=== PATIENT | female | born 1995 | race Caucasian/White ===

== ENCOUNTER → 2016-10-16 | Outpatient (CLI) | payer SELFPAY ==
[~2016-10-16] MED LIST: ACET50TA PO; IBUP60TA PO; IBUP80TA PO; IRON65TA PO; PRENTAB9 PO; VITAPRTA PO
--- NOTE | 2016-10-16 13:17 | REP ---
Clinical: Multinodular goiter. Technique: Real time galicia scale and color evaluation using linear high frequency transducer. Findings: The thyroid gland is diffusely heterogeneous with innumerable small nodular changes. Right lobe measures 5.1 x 2.2 x 2.1 cm. Left lobe measures 5.1 x 2.2 x 2.0 cm. Isthmus measures 3 mm in width. Impression: Multinodular goiter. Signed by Jim Hinds MD 10/16/2016 01:08 P
== END ==
LOC: M RAD 12:44
PROVIDERS: ATTEND Family Medicine
DX: E04.1 Nontoxic single thyroid nodule (principal)

== ENCOUNTER → 2016-10-26 | Outpatient (REF) | payer MEDICAID ==
[2016-10-26 15:53] LABS: FREE T4 0.8 NG/DL (0.76-1.46)
== END ==
LOC: M SFHCPLAZ 13:35
PROVIDERS: ATTEND Family Medicine
DX: E04.1 Nontoxic single thyroid nodule (principal)

== ENCOUNTER → 2016-11-12 | Outpatient (REF) | payer OTHER ==
[2016-11-13 10:39] LABS: THYROID PEROXIDASE ANTIBODY > 1300.0 U/ML (<60.0)
== END ==
LOC: M LABDRAW1 10:52
PROVIDERS: ATTEND Family Medicine
DX: E03.9 Hypothyroidism, unspecified (principal)

== ENCOUNTER 2016-12-15 17:43 | Emergency (ER) | payer OTHER ==
[~2016-12-15] VITALS: Ht 160 cm; Wt 85.3 kg
[2016-12-15] MEDS ORDERED: LEVO25TA5 PO (18:12)
[2016-12-15] MEDS ORDERED: ALEV220C2 PO (18:12)
[2016-12-15] MEDS ORDERED: PERCOCET 5MG/325MG TAB PO ONE (19:30)
[2016-12-15] MEDS ORDERED: ONDANSETRON 4 MG ORAL DISINTEGRATING TAB (S0181) PO ONE (19:30)
[2016-12-15 19:53] LABS: BASO % 0.6 % (0.0-1.0); EOS # 0.3 K/mm3 (0.0-0.50); EOS % 5.2 % (0.0-3.0); LARGE UNSTAINED CELL # 0.1 K/mm3 (0.0-0.4); LARGE UNSTAINED CELL % 2.4 % (0.0-4.0); LYMPH # 2.3 K/mm3 (1.5-6.5); LYMPH % 36.7 % (24.0-44.0); MEAN CORPUSCULAR HEMOGLOBIN 28.1 pg (27.0-33.0); MEAN CORPUSCULAR HGB CONC 33.5 g/dl (32.0-36.5); MONO # 0.4 K/mm3 (0.0-0.8); MONO % 5.9 % (0.0-5.0); NEUTROPHILS % 49.3 % (36.0-66.0); PLATELET COUNT, AUTOMATED 216 k/mm3 (150-450); RED CELL DISTRIBUTION WIDTH 12.8 % (11.5-14.5)
[2016-12-15 20:03] LABS: ALKALINE PHOSPHATASE 83 U/L (45-117); ALT/SGPT 18 U/L (12-78); AMYLASE 48 U/L (25-115); ANION GAP 8 MEQ/L (8-16); AST/SGOT 15 U/L (15-37); BILIRUBIN,DIRECT < 0.1 MG/DL (0.0-0.2); BILIRUBIN,TOTAL 0.3 MG/DL (0.2-1.0); BLOOD UREA NITROGEN 13 MG/DL (7-18); CALCIUM LEVEL 8.5 MG/DL (8.5-10.1); CARBON DIOXIDE LEVEL 27 MEQ/L (21-32); CHLORIDE LEVEL 107 MEQ/L (98-107); CREATININE FOR GFR 0.76 MG/DL (0.55-1.02); GLOMERULAR FILTRATION RATE > 60.0 (>60); GLUCOSE, FASTING 93 MG/DL (70-105); POTASSIUM SERUM 3.9 MEQ/L (3.5-5.1); SODIUM LEVEL 142 MEQ/L (136-145)
--- NOTE | 2016-12-15 21:10 | REPUSA ---
CLINICAL HISTORY: Pain. TECHNIQUE: Realtime sonographic images were obtained in multiple projections. COMMENTS: The liver is of uniform echo texture without evidence of mass or defect. There is no intra or extrahe patic biliary ductal dilatation. The common bile duct measures up to 3 mm. The gallbladder is physiol ogically distended without evidence of calculi. The gallbladder wall is not thickened and there is no pericholecystic fluid. There is no abdominal ascites. The visualized portions of the pancreas are unremarkable. The right kidney measures 11.1 cm and is fr ee of masses or hydronephrosis. The visualized portions of abdominal aorta present no abnormalities. IMPRESSION: Normal study. Thank you for your kind referral of this patient.
[2016-12-15] MEDS ORDERED: PRIL20CA9 PO (21:27)
[2016-12-15] MEDS ORDERED: ZOFR4TAB3 PO (21:27)
[2016-12-15 21:35] VITALS: BP 119/72
== END 2016-12-15 21:53 | disposition home or self-care (01) ==
LOC: M ED 18:48
DX: K29.00 Acute gastritis without bleeding (principal); K21.9 Gastro-esophageal reflux disease without esophagitis; Z79.899 Other long term (current) drug therapy

== ENCOUNTER 2017-01-21 23:26 | Emergency (ER) | payer OTHER ==
[~2017-01-21] VITALS: Ht 160 cm; Wt 77.1 kg
[~2017-01-21 23:26] MED LIST changes: +ALEV220C2 PO; +LEVO25TA5 PO; +PRIL20CA9 PO; +ZOFR4TAB3 PO
[2017-01-21 23:27] VITALS: BP 129/71
[2017-01-22] MEDS ORDERED: IBUPROFEN 800 MG TAB PO ONE (00:15)
== END 2017-01-22 00:46 | disposition home or self-care (01) ==
LOC: M ED 01-22 00:28
DX: S93.431A Sprain of tibiofibular ligament of right ankle, initial encounter (principal); X58.XXXA Exposure to other specified factors, initial encounter; Y92.019 Unspecified place in single-family (private) house as the place of occurrence of the external cause; Y93.89 Activity, other specified; Y99.8 Other external cause status; F41.9 Anxiety disorder, unspecified

== ENCOUNTER → 2017-02-01 | Outpatient (CLI) | payer OTHER | LOC: M SMT 10:25 | PROVIDERS: ATTEND Family Medicine | DX: S93.401A Sprain of unspecified ligament of right ankle, initial encounter (principal); Z53.9 Procedure and treatment not carried out, unspecified reason ==

== ENCOUNTER 2017-07-20 15:46 | Emergency (ER) | payer OTHER ==
[~2017-07-20] VITALS: Ht 160 cm; Wt 95.5 kg
[2017-07-20 15:55] VITALS: BP 148/81
[2017-07-20] MEDS ORDERED: FERR325T3 PO (15:59)
[2017-07-20] MEDS ORDERED: AFLU1INJ (15:59)
[2017-07-20 17:01] LABS: CONTROL LINE UCG INT CTR LINE PRESENT
--- NOTE | 2017-07-20 18:05 | REP ---
PELVIC ULTRASOUND: Real-time sonographic evaluation of the pelvis performed utilizing transabdominal technique. The bladder is collapsed. The uterus measures 8.0 x 4.0 x 5.8 cm. Endometrial stripe measures 2 mm. There is no endometrial fluid collection. Ovaries are normal in size and echotexture, the right ovary measuring 3.4 x 1.8 x 1.7 cm and left ovary 2.1 x 2.3 x 2.1 cm. There is no adnexal mass or free fluid. There is blood flow seen in each ovary with duplex Doppler evaluation with no torsion, RI right ovary 0.58 and left ovary 0.60. IMPRESSION: Negative pelvic ultrasound. Signed by Wang Hernandez MD 07/20/2017 08:03 P
--- NOTE | 2017-07-20 18:51 | REP ---
CT ABDOMEN AND PELVIS WITHOUT CONTRAST: CT abdomen and pelvis was performed without oral or IV contrast. Sagittal and coronal reconstruction images are performed. Visualized lung bases are clear. Liver, spleen, adrenals, pancreas, and kidneys are grossly unremarkable. No renal or ureteral calculus is seen and there is no evidence of hydroureteronephrosis. There is no evidence of abdominal aortic aneurysm. There is no adenopathy seen. No free air or free fluid is seen. I see no bowel wall thickening. The appendix is normal. No pelvic mass is seen. Urinary bladder is gross unremarkable. IMPRESSION: Negative noncontrast CT abdomen and pelvis. No renal or ureteral calculus and no hydroureteronephrosis. No evidence of appendicitis. No evidence of free air or free fluid. Signed by Wang Hernandez MD 07/20/2017 08:04 P
[2017-07-20] MEDS ORDERED: OXYCODONE/APAP 5MG/325MG(BULK FOR ED) 1 TABLET PO ONE (19:00)
[2017-07-20] MEDS ORDERED: LEVO25TA5 PO (19:16)
== END 2017-07-20 19:28 | disposition home or self-care (01) ==
LOC: M ED 15:46
DX: R10.2 Pelvic and perineal pain (principal); F41.9 Anxiety disorder, unspecified; F33.9 Major depressive disorder, recurrent, unspecified; Z79.899 Other long term (current) drug therapy

== ENCOUNTER 2017-10-13 08:04 | Emergency (ER) | payer OTHER ==
[2017-10-13] MEDS: ACETAMINOPHEN 325 MG TAB PO (08:30)
[2017-10-13 08:57] LABS: BASO % 0.7 % (0.0-1.0); EOS # 0.2 10^3/uL (0.0-0.50); EOS % 3.5 % (0.0-3.0); HEMATOCRIT 37.9 % (36.0-47.0); IMMATURE GRANULOCYTE % 0.5 % (0-0); LYMPH # 2.3 10^3/uL (1.5-6.5); LYMPH % 37.4 % (24.0-44.0); MEAN CORPUSCULAR HEMOGLOBIN 26.6 pg (27.0-33.0); MEAN CORPUSCULAR HGB CONC 31.7 g/dl (32.0-36.5); MONO # 0.4 10^3/uL (0.0-0.8); MONO % 6.8 % (0.0-5.0); NEUTROPHILS # 3.1 10^3/uL (1.8-7.7); NEUTROPHILS % 51.1 % (36.0-66.0); PLATELET COUNT, AUTOMATED 224 10^3/uL (150-450); RED BLOOD COUNT 4.51 10^6/uL (4.00-5.40); RED CELL DISTRIBUTION WIDTH 13.7 % (11.5-14.5)
[2017-10-13 09:30] LABS: ANION GAP 8 MEQ/L (8-16); BLOOD UREA NITROGEN 8 MG/DL (7-18); CALCIUM LEVEL 8.4 MG/DL (8.5-10.1); CARBON DIOXIDE LEVEL 26 MEQ/L (21-32); CHLORIDE LEVEL 109 MEQ/L (98-107); CREATININE FOR GFR 0.69 MG/DL (0.55-1.02); ERYTHROCYTE SEDIMENTATION RATE 32 mm/hr (0-20); GLOMERULAR FILTRATION RATE > 60.0 (>60); GLUCOSE, FASTING 90 MG/DL (70-105); POTASSIUM SERUM 3.9 MEQ/L (3.5-5.1); SODIUM LEVEL 143 MEQ/L (136-145)
== END 2017-10-13 10:20 | disposition home or self-care (01) ==
LOC: M ED 08:04
DX: J02.0 Streptococcal pharyngitis (principal); R51 Headache; E03.9 Hypothyroidism, unspecified; Z79.899 Other long term (current) drug therapy
CPT/HCPCS: 84443

== ENCOUNTER 2017-11-13 05:20 | Emergency (ER) | payer OTHER ==
[2017-11-13] MEDS: AUGMENTIN 875 MG TAB PO (05:51)
== END 2017-11-13 06:05 | disposition home or self-care (01) ==
LOC: M ED 05:20
DX: H66.93 Otitis media, unspecified, bilateral (principal); R05 Cough; E03.9 Hypothyroidism, unspecified; F17.200 Nicotine dependence, unspecified, uncomplicated; Z79.899 Other long term (current) drug therapy
CPT/HCPCS: 71046

== ENCOUNTER 2017-12-15 16:06 | Emergency (ER) | payer OTHER | END 2017-12-15 17:35 | disposition left against medical advice (07) | LOC: M ED 16:06 | DX: Z53.21 Procedure and treatment not carried out due to patient leaving prior to being seen by health care provider (principal) ==

== ENCOUNTER → 2017-12-29 | Outpatient (REF) | payer OTHER ==
[2017-12-29 12:47] LABS: BASO % 0.4 % (0.0-1.0); EOS # 0.2 10^3/uL (0.0-0.50); EOS % 3.5 % (0.0-3.0); HEMATOCRIT 37.5 % (36.0-47.0); HEMOGLOBIN 11.8 g/dl (12.0-16.0); IMMATURE GRANULOCYTE % 0.4 % (0-3.0); LYMPH # 2.2 10^3/uL (1.5-6.5); LYMPH % 31.6 % (24.0-44.0); MEAN CORPUSCULAR HEMOGLOBIN 26.5 pg (27.0-33.0); MEAN CORPUSCULAR HGB CONC 31.5 g/dl (32.0-36.5); MEAN CORPUSCULAR VOLUME 84.1 fl (80.0-96.0); MONO # 0.5 10^3/uL (0.0-0.8); MONO % 7.4 % (0.0-5.0); NEUTROPHILS # 3.9 10^3/uL (1.8-7.7); NEUTROPHILS % 56.7 % (36.0-66.0); PLATELET COUNT, AUTOMATED 212 10^3/uL (150-450); RED BLOOD COUNT 4.46 10^6/uL (4.00-5.40); RED CELL DISTRIBUTION WIDTH 13.8 % (11.5-14.5); WHITE BLOOD COUNT 6.9 10^3/uL (4.0-10.0)
[2017-12-29 13:02] LABS: C REACTIVE PROTEIN QUANTITATIV 1.19 MG/DL (0.00-0.30)
[2017-12-29 13:05] LABS: ERYTHROCYTE SEDIMENTATION RATE 41 mm/hr (0-20)
== END ==
LOC: M LABDRAW1 10:09
DX: R22.41 Localized swelling, mass and lump, right lower limb (principal)
CPT/HCPCS: 36415

== ENCOUNTER → 2018-01-03 | Outpatient (CLI) | payer OTHER ==
[~2018-01-03] MED LIST changes: -ACET50TA PO; -ALEV220C2 PO; -IBUP60TA PO; -IBUP80TA PO; -IRON65TA PO; -LEVO25TA5 PO; -PRENTAB9 PO; -PRIL20CA9 PO; +PROHANCE 279.3MG/ML 15ML VIAL (A9576) As Ordered; +PROHANCE 279.3MG/ML 5ML VIAL (A9576) As Ordered; -VITAPRTA PO; -ZOFR4TAB3 PO
== END ==
LOC: M RAD 17:40
DX: R22.41 Localized swelling, mass and lump, right lower limb (principal); D17.39 Benign lipomatous neoplasm of skin and subcutaneous tissue of other sites
CPT/HCPCS: A9576

== ENCOUNTER → 2018-01-20 | Outpatient (REF) | payer OTHER ==
[2018-01-20 15:46] LABS: BASO % 0.4 % (0.0-1.0); EOS # 0.3 10^3/uL (0.0-0.50); HEMATOCRIT 37.7 % (36.0-47.0); HEMOGLOBIN 12.3 g/dl (12.0-15.5); IMMATURE GRANULOCYTE % 0.2 % (0-3.0); LYMPH # 2.8 10^3/uL (1.5-6.5); LYMPH % 33.4 % (24.0-44.0); MEAN CORPUSCULAR HEMOGLOBIN 27.2 pg (27.0-33.0); MEAN CORPUSCULAR HGB CONC 32.6 g/dl (32.0-36.5); MEAN CORPUSCULAR VOLUME 83.2 fl (80.0-96.0); MONO # 0.5 10^3/uL (0.0-0.8); MONO % 6.4 % (0.0-5.0); NEUTROPHILS # 4.8 10^3/uL (1.8-7.7); NEUTROPHILS % 56.6 % (36.0-66.0); PLATELET COUNT, AUTOMATED 252 10^3/uL (150-450); RED BLOOD COUNT 4.53 10^6/uL (4.00-5.40); WHITE BLOOD COUNT 8.5 10^3/uL (4.0-10.0)
[2018-01-20 15:54] LABS: APPEARANCE, URINE HAZY (CLEAR); BACTERIA, URINE AUTO NEGATIVE (NEGATIVE); BILIRUBIN, URINE AUTO NEGATIVE (NEGATIVE); BLOOD, URINE BLOOD 2+ (NEGATIVE); COLOR, URINE YELLOW (YELLOW); GLUCOSE, URINE (UA) AUTO NEGATIVE (NEGATIVE); KETONE, URINE AUTO NEGATIVE (NEGATIVE); LEUKOCYTE ESTERASE, URINE AUTO TRACE (NEGATIVE); MUCUS, URINE SMALL (NEGATIVE); NITRITE, URINE AUTO NEGATIVE (NEGATIVE); PROTEIN, URINE AUTO NEGATIVE (NEGATIVE); RBC, URINE AUTO 9 /HPF (0-3); SPECIFIC GRAVITY URINE AUTO 1.019 (1.002-1.035); SQUAMOUS EPITHELIAL CELL UR AU 3 /HPF (0-6); UROBILINOGEN, URINE AUTO 0.2 mg/dL (0.0-2.0); WBC, URINE AUTO 2 /HPF (0-3)
[2018-01-20 16:08] LABS: ERYTHROCYTE SEDIMENTATION RATE 34 mm/hr (0-20)
[2018-01-20 16:17] LABS: ALBUMIN 3.7 GM/DL (3.2-5.2); ALBUMIN/GLOBULIN RATIO 0.93 (1.00-1.93); ALKALINE PHOSPHATASE 107 U/L (45-117); ALT/SGPT 20 U/L (12-78); ANION GAP 7 MEQ/L (8-16); AST/SGOT 15 U/L (7-37); BILIRUBIN,TOTAL 0.3 MG/DL (0.2-1.0); BLOOD UREA NITROGEN 12 MG/DL (7-18); CARBON DIOXIDE LEVEL 27 MEQ/L (21-32); CHLORIDE LEVEL 107 MEQ/L (98-107); CREATININE FOR GFR 0.65 MG/DL (0.55-1.30); FREE T4 0.78 NG/DL (0.76-1.46); GLOMERULAR FILTRATION RATE > 60.0 (>60); GLUCOSE, FASTING 91 MG/DL (70-100); POTASSIUM SERUM 3.7 MEQ/L (3.5-5.1); SODIUM LEVEL 141 MEQ/L (136-145); TOTAL PROTEIN 7.7 GM/DL (6.4-8.2)
== END ==
LOC: M LABDRAW1 14:56
DX: R19.5 Other fecal abnormalities (principal); R71.8 Other abnormality of red blood cells

== ENCOUNTER → 2018-02-15 | Outpatient (CLI) | payer OTHER | LOC: M RAD 17:37 | DX: M25.571 Pain in right ankle and joints of right foot (principal); M25.572 Pain in left ankle and joints of left foot | CPT/HCPCS: 93971 ==

== ENCOUNTER → 2018-02-18 | Outpatient (REF) | payer OTHER ==
[2018-02-18 15:42] LABS: BASO % 0.4 % (0.0-1.0); EOS # 0.2 10^3/uL (0.0-0.50); EOS % 2.6 % (0.0-3.0); HEMATOCRIT 35.6 % (36.0-47.0); HEMOGLOBIN 11.6 g/dl (12.0-15.5); IMMATURE GRANULOCYTE % 0.3 % (0-3.0); LYMPH # 2.1 10^3/uL (1.5-6.5); LYMPH % 27.3 % (24.0-44.0); MEAN CORPUSCULAR HEMOGLOBIN 27.4 pg (27.0-33.0); MEAN CORPUSCULAR HGB CONC 32.6 g/dl (32.0-36.5); MONO # 0.6 10^3/uL (0.0-0.8); MONO % 7.3 % (0.0-5.0); NEUTROPHILS # 4.8 10^3/uL (1.8-7.7); NEUTROPHILS % 62.1 % (36.0-66.0); PLATELET COUNT, AUTOMATED 245 10^3/uL (150-450); RED BLOOD COUNT 4.24 10^6/uL (4.00-5.40); RED CELL DISTRIBUTION WIDTH 14.1 % (11.5-14.5); WHITE BLOOD COUNT 7.7 10^3/uL (4.0-10.0)
[2018-02-18 15:52] LABS: C REACTIVE PROTEIN QUANTITATIV 1.46 MG/DL (0.00-0.30); RHEUMATOID FACTOR QUANT < 10.0 IU/ML (<15.0)
[2018-02-18 17:27] LABS: ERYTHROCYTE SEDIMENTATION RATE 33 mm/hr (0-20)
[2018-02-22 00:07] LABS: ANTINUCLEAR ANTIBODIES DIRECT Negative (Negative); Lyme Disease IgG/IgM Antibodie <0.91 ISR (0.00-0.90); Lyme Disease IgM Ab Quantitati <0.80 index (0.00-0.79)
== END ==
LOC: M LAB REF 15:31
DX: M25.571 Pain in right ankle and joints of right foot (principal)
CPT/HCPCS: 84550

== ENCOUNTER 2018-09-22 11:14 | Emergency (ER) | payer OTHER | END 2018-09-22 13:00 | disposition home or self-care (01) | LOC: M ED 11:14 | DX: M25.512 Pain in left shoulder (principal); Z53.21 Procedure and treatment not carried out due to patient leaving prior to being seen by health care provider | CPT/HCPCS: 73030 ==

== ENCOUNTER 2018-10-23 10:23 | Emergency (ER) | payer OTHER ==
[~2018-10-23] VITALS: Ht 160 cm; Wt 95.5 kg
[~2018-10-23 10:23] MED LIST changes: +AFLU1INJ; +ALEV220C2 PO; +AUGM500T34 PO; +FERR325T3 PO; +GABA-845 PO; +IBUP60TA PO; +IBUP80TA PO; +IRON65TA PO; +KEFL500C17 PO; +LEVO25TA5 PO; +LEVO75TA4 PO; +MAPA500T2 PO; +NAPR-885 PO; +PRENTAB9 PO; +PRIL20CA9 PO; -PROHANCE 279.3MG/ML 15ML VIAL (A9576) As Ordered; -PROHANCE 279.3MG/ML 5ML VIAL (A9576) As Ordered; +REGL10TA6 PO; +VITAPRTA PO; +ZOFR4TAB14 PO
[2018-10-23] MEDS ORDERED: PERCOCET 5MG/325MG TAB PO ONE (11:15)
[2018-10-23 11:59] VITALS: BP 125/77
[2018-10-23] MEDS ORDERED: PERC5TAB12 PO (12:17)
[2018-10-23] MEDS ORDERED: IBUP80TA PO (12:17)
--- NOTE | 2018-10-23 12:42 | REP ---
RIGHT FIFTH TOE SERIES: 10/23/2018. Clinical history: Trauma, injured right fifth toe. Findings: There is a nondisplaced fracture through the shaft and proximal metaphysis that of the proximal phalanx of the fifth toe. No angulation. MCP and IP joints adjacent were unremarkable. The other visualized bones are normal. Impression: 1. Nondisplaced, nonangulated fracture of the shaft and proximal metaphysis of the proximal phalanx left fifth toe. No other finding. Electronically Signed by Rafael Sewell MD 10/23/2018 02:30 P
== END 2018-10-23 12:26 | disposition home or self-care (01) ==
LOC: M ED 10:23
DX: S92.511A Displaced fracture of proximal phalanx of right lesser toe(s), initial encounter for closed fracture (principal); W22.8XXA Striking against or struck by other objects, initial encounter; Y92.018 Other place in single-family (private) house as the place of occurrence of the external cause

== ENCOUNTER 2018-12-11 23:08 | Emergency (ER) | payer OTHER ==
[~2018-12-11] VITALS: Ht 160 cm; Wt 95.5 kg
[~2018-12-11 23:08] MED LIST changes: +PERC5TAB12 PO
[2018-12-12 01:46] VITALS: BP 105/62
[2018-12-12] MEDS ORDERED: BENA25CA4 PO (01:49)
[2018-12-12] MEDS ORDERED: PEPC1TAB5 PO (01:49)
[2018-12-12] MEDS ORDERED: PRED20TA PO (01:49)
[2018-12-12] MEDS ORDERED: diphenhydrAMINE 25 MG CAP PO ONE (02:00)
[2018-12-12] MEDS ORDERED: FAMOTIDINE 20 MG TAB PO ONE (02:00)
[2018-12-12] MEDS ORDERED: predniSONE 20 MG TAB PO ONE (02:00)
== END 2018-12-12 02:58 | disposition home or self-care (01) ==
LOC: M ED 23:08
DX: L50.9 Urticaria, unspecified (principal); E03.9 Hypothyroidism, unspecified; F17.210 Nicotine dependence, cigarettes, uncomplicated

== ENCOUNTER → 2019-04-18 | Outpatient (REF) | payer MEDICAID, SELFPAY ==
[~2019-04-18] MED LIST changes: +BENA25CA4 PO; +DOXY100C PO; +IBUP600T42 PO; -IBUP60TA PO; +NAPR220C14 PO; +PEPC1TAB5 PO; +PRED20TA PO; +SYNT75TA PO
[2019-04-18 15:45] LABS: BASO % 0.5 % (0.0-1.0); EOS # 0.1 10^3/uL (0.0-0.50); EOS % 2.2 % (0.0-3.0); HEMATOCRIT 43.2 % (36.0-47.0); HEMOGLOBIN 13.4 g/dl (12.0-15.5); LYMPH # 2.1 10^3/uL (1.5-6.5); LYMPH % 36.9 % (24.0-44.0); MEAN CORPUSCULAR VOLUME 87.1 fl (80.0-96.0); MONO # 0.4 10^3/uL (0.0-0.8); MONO % 6.6 % (0.0-5.0); NEUTROPHILS # 3.1 10^3/uL (1.8-7.7); NEUTROPHILS % 53.3 % (36.0-66.0); PLATELET COUNT, AUTOMATED 258 10^3/uL (150-450); RED BLOOD COUNT 4.96 10^6/uL (4.00-5.40); WHITE BLOOD COUNT 5.8 10^3/uL (4.0-10.0)
[2019-04-18 16:00] LABS: ALBUMIN 3.7 GM/DL (3.2-5.2); ALT/SGPT 21 U/L (12-78); BILIRUBIN,TOTAL 0.3 MG/DL (0.2-1.0); BLOOD UREA NITROGEN 8 MG/DL (7-18); CALCIUM LEVEL 9.2 MG/DL (8.5-10.1); CARBON DIOXIDE LEVEL 28 MEQ/L (21-32); CHLORIDE LEVEL 105 MEQ/L (98-107); CHOLESTEROL LEVEL 196 MG/DL (<200); CHOLESTEROL RISK RATIO 4.558 (<5); CREATININE FOR GFR 0.72 MG/DL (0.55-1.30); FREE T4 0.79 NG/DL (0.76-1.46); GLOMERULAR FILTRATION RATE > 60.0 (>60); GLUCOSE, FASTING 86 MG/DL (70-100); HDL CHOLESTEROL 43 MG/DL (>40); LDL CHOLESTEROL 113 MG/DL (<100); NON-HDL-C 153 MG/DL; SODIUM LEVEL 138 MEQ/L (136-145); TOTAL 25(OH) VITAMIN D 23.7 NG/ML (30.0-100.0); TOTAL PROTEIN 7.9 GM/DL (6.4-8.2); TRIGLYCERIDES LEVEL 200 MG/DL (<150)
[2019-04-18 16:04] LABS: AMORPHOUS SEDIMENT LARGE (NEGATIVE); APPEARANCE, URINE TURBID (CLEAR); BACTERIA, URINE AUTO NEGATIVE (NEGATIVE); BILIRUBIN, URINE AUTO NEGATIVE (NEGATIVE); BLOOD, URINE BLOOD 2+ (NEGATIVE); COLOR, URINE RED (YELLOW); GLUCOSE, URINE (UA) AUTO NEGATIVE (NEGATIVE); KETONE, URINE AUTO NEGATIVE (NEGATIVE); LEUKOCYTE ESTERASE, URINE AUTO NEGATIVE (NEGATIVE); MUCUS, URINE SMALL (NEGATIVE); NITRITE, URINE AUTO NEGATIVE (NEGATIVE); PROTEIN, URINE AUTO NEGATIVE (NEGATIVE); RBC, URINE AUTO 1 /HPF (0-3); SPECIFIC GRAVITY URINE AUTO 1.016 (1.002-1.035); SQUAMOUS EPITHELIAL CELL UR AU 4 /HPF (0-6); UROBILINOGEN, URINE AUTO 0.2 mg/dL (0.0-2.0); WBC, URINE AUTO 2 /HPF (0-3)
[2019-04-18 16:04] LABS: HEMOGLOBIN A1c 5.7 %
== END ==
LOC: M LAB REF 14:54
PROVIDERS: ATTEND Nurse Practitioner Family
DX: Z13.9 Encounter for screening, unspecified (principal)

== ENCOUNTER 2019-05-08 21:15 | Emergency (ER) | payer MEDICAID, SELFPAY ==
[~2019-05-08] VITALS: Ht 160 cm; Wt 92.7 kg
[~2019-05-08 21:15] MED LIST changes: -DOXY100C PO; -NAPR220C14 PO; -SYNT75TA PO
[2019-05-08] MEDS ORDERED: SYNT75TA PO (21:19)
[2019-05-08] MEDS ORDERED: DOXY100C PO (21:19)
[2019-05-08] MEDS ORDERED: NAPR220C14 PO (21:21)
[2019-05-08 22:22] LABS: HEMOGLOBIN 12.1 g/dl (12.0-15.5); MEAN CORPUSCULAR HEMOGLOBIN 26.5 pg (27.0-33.0); MEAN CORPUSCULAR VOLUME 85.3 fl (80.0-96.0); PLATELET COUNT, AUTOMATED 259 10^3/uL (150-450); RED BLOOD COUNT 4.57 10^6/uL (4.00-5.40); WHITE BLOOD COUNT 8.9 10^3/uL (4.0-10.0)
[2019-05-08 22:48] LABS: BLOOD UREA NITROGEN 8 MG/DL (7-18); CALCIUM LEVEL 9.5 MG/DL (8.5-10.1); CARBON DIOXIDE LEVEL 28 MEQ/L (21-32); CHLORIDE LEVEL 105 MEQ/L (98-107); CREATININE FOR GFR 0.75 MG/DL (0.55-1.30); GLOMERULAR FILTRATION RATE > 60.0 (>60); GLUCOSE, FASTING 86 MG/DL (70-100); POTASSIUM SERUM 4.3 MEQ/L (3.5-5.1); SODIUM LEVEL 138 MEQ/L (136-145)
[2019-05-08 22:49] LABS: HCG, SERUM QUALITATIVE NEGATIVE (NEGATIVE)
[2019-05-08] MEDS ORDERED: METOCLOPRAMIDE INJ 10MG/2ML VIAL (J2765) IV ONE (23:00)
[2019-05-08] MEDS ORDERED: KETOROLAC 30 MG/ML VIAL (J1885) IV ONE (23:00)
[2019-05-08] MEDS ORDERED: NS 1,000 ML IV ONE (23:00)
[2019-05-08] MEDS ORDERED: diphenhydrAMINE INJ 50MG/ML VIAL (J1200) IV ONE (23:00)
[2019-05-09 01:10] VITALS: BP 104/48
[2019-08-03] MEDS ORDERED: BETA5CR EXT (12:02)
== END 2019-05-09 01:24 | disposition home or self-care (01) ==
LOC: M ED 21:15
DX: G43.909 Migraine, unspecified, not intractable, without status migrainosus (principal); E11.9 Type 2 diabetes mellitus without complications; E78.5 Hyperlipidemia, unspecified; E03.9 Hypothyroidism, unspecified; Z79.899 Other long term (current) drug therapy
CPT/HCPCS: 36415; 80048; 81001; 84703; 85027; 87086; 96361; 96374; 96375; 99284; J1200; J1885; J2765

== ENCOUNTER 2019-05-20 19:03 | Emergency (ER) | payer MEDICAID ==
[~2019-05-20] VITALS: Ht 160 cm; Wt 95.9 kg
[~2019-05-20 19:03] MED LIST changes: +DOXY100C PO; +NAPR220C14 PO; +SYNT75TA PO
[2019-05-20] MEDS ORDERED: ACETAMINOPHEN 325 MG TAB PO ONE (21:15)
[2019-05-20 21:25] LABS: BASO % 0.5 % (0.0-1.0); EOS # 0.2 10^3/uL (0.0-0.50); EOS % 2.4 % (0.0-3.0); HEMATOCRIT 37.9 % (36.0-47.0); HEMOGLOBIN 12.1 g/dl (12.0-15.5); LYMPH # 3.1 10^3/uL (1.5-6.5); LYMPH % 34.5 % (24.0-44.0); MEAN CORPUSCULAR HEMOGLOBIN 26.5 pg (27.0-33.0); MEAN CORPUSCULAR HGB CONC 31.9 g/dl (32.0-36.5); MEAN CORPUSCULAR VOLUME 83.1 fl (80.0-96.0); MONO # 0.5 10^3/uL (0.0-0.8); MONO % 5.9 % (0.0-5.0); NEUTROPHILS % 56.4 % (36.0-66.0); PLATELET COUNT, AUTOMATED 249 10^3/uL (150-450); RED BLOOD COUNT 4.56 10^6/uL (4.00-5.40); WHITE BLOOD COUNT 8.9 10^3/uL (4.0-10.0)
[2019-05-20 21:54] LABS: BLOOD UREA NITROGEN 12 MG/DL (7-18); CARBON DIOXIDE LEVEL 25 MEQ/L (21-32); CHLORIDE LEVEL 110 MEQ/L (98-107); CREATININE FOR GFR 0.75 MG/DL (0.55-1.30); GLOMERULAR FILTRATION RATE > 60.0 (>60); GLUCOSE, FASTING 91 MG/DL (70-100); POTASSIUM SERUM 3.9 MEQ/L (3.5-5.1); SODIUM LEVEL 140 MEQ/L (136-145)
[2019-05-20 23:17] LABS: CHLAMYDIA DNA AMPLIFICATION NEGATIVE (NEGATIVE); GC DNA AMPLIFICATION NEGATIVE (NEGATIVE)
[2019-05-21 00:35] VITALS: BP 122/78
== END 2019-05-21 00:38 | disposition home or self-care (01) ==
LOC: M ED 19:03
DX: R10.30 Lower abdominal pain, unspecified (principal); R10.31 Right lower quadrant pain; R10.32 Left lower quadrant pain; K59.09 Other constipation; L40.9 Psoriasis, unspecified; R51 Headache; K21.9 Gastro-esophageal reflux disease without esophagitis; E03.9 Hypothyroidism, unspecified; E05.90 Thyrotoxicosis, unspecified without thyrotoxic crisis or storm; N83.299 Other ovarian cyst, unspecified side; Z79.899 Other long term (current) drug therapy

== ENCOUNTER 2019-05-30 12:45 | Emergency (ER) | payer MEDICAID ==
[~2019-05-30] VITALS: Ht 162.6 cm; Wt 93.8 kg
[2019-05-30 13:40] LABS: BASO % 0.3 % (0.0-1.0); EOS # 0.2 10^3/uL (0.0-0.50); EOS % 2.2 % (0.0-3.0); HEMATOCRIT 36.9 % (36.0-47.0); HEMOGLOBIN 11.8 g/dl (12.0-15.5); LYMPH # 2.3 10^3/uL (1.5-6.5); LYMPH % 26.4 % (24.0-44.0); MEAN CORPUSCULAR HEMOGLOBIN 26.9 pg (27.0-33.0); MEAN CORPUSCULAR VOLUME 84.1 fl (80.0-96.0); MONO # 0.5 10^3/uL (0.0-0.8); MONO % 6.2 % (0.0-5.0); NEUTROPHILS # 5.7 10^3/uL (1.8-7.7); NEUTROPHILS % 64.7 % (36.0-66.0); PLATELET COUNT, AUTOMATED 257 10^3/uL (150-450); RED BLOOD COUNT 4.39 10^6/uL (4.00-5.40); WHITE BLOOD COUNT 8.7 10^3/uL (4.0-10.0)
[2019-05-30 13:53] LABS: GLUCOSE, URINE (UA) MANUAL NEGATIVE (NEGATIVE)
[2019-05-30 13:55] LABS: BILIRUBIN, URINE MANUAL OBSCURED (NEGATIVE); KETONE, URINE MANUAL OBSCURED mg/dL (NEGATIVE); UROBILINOGEN, URINE MANUAL OBSCURED mg/dl (NORMAL)
[2019-05-30 14:10] LABS: BACTERIA, URINE MOD AMOUNT; HYALINE CAST, URINE NONE SEEN /lpf (0-1); RBC, URINE TNTC /hpf (0-3); SQUAMOUS EPITHELIAL CELL URINE SMALL AMOUNT /hpf (SMALL AMT)
[2019-05-30] MEDS ORDERED: LIDOCAINE 2% 5ML JELLY UROJET TOP ONE (14:15)
[2019-05-30 14:24] LABS: BLOOD UREA NITROGEN 10 MG/DL (7-18); CALCIUM LEVEL 9.2 MG/DL (8.5-10.1); CARBON DIOXIDE LEVEL 26 MEQ/L (21-32); CHLORIDE LEVEL 109 MEQ/L (98-107); CREATININE FOR GFR 0.77 MG/DL (0.55-1.30); GLOMERULAR FILTRATION RATE > 60.0 (>60); GLUCOSE, FASTING 80 MG/DL (70-100); HCG, SERUM QUANTITATIVE < 1.0 MIU/ML; SODIUM LEVEL 138 MEQ/L (136-145)
[2019-05-30 15:20] VITALS: BP 110/62
[2019-05-30 16:44] LABS: CHLAMYDIA DNA AMPLIFICATION NEGATIVE (NEGATIVE); GC DNA AMPLIFICATION NEGATIVE (NEGATIVE)
== END 2019-05-30 15:24 | disposition home or self-care (01) ==
LOC: M ED 12:45
DX: N93.9 Abnormal uterine and vaginal bleeding, unspecified (principal); Z79.899 Other long term (current) drug therapy

== ENCOUNTER → 2019-07-03 | Outpatient (REF) | payer OTHER, MEDICAID ==
[~2019-07-03] MED LIST changes: +BETA5CR EXT
== END ==
LOC: M LAB REF 19:27
PROVIDERS: ATTEND Nurse Practitioner Family
DX: J02.9 Acute pharyngitis, unspecified (principal); R11.2 Nausea with vomiting, unspecified

== ENCOUNTER → 2019-07-19 | Outpatient (REF) | payer OTHER, MEDICAID ==
[~2019-07-19] MED LIST changes: -BETA5CR EXT
[2019-07-19 20:42] LABS: CHLAMYDIA DNA AMPLIFICATION NEGATIVE (NEGATIVE); GC DNA AMPLIFICATION NEGATIVE (NEGATIVE)
== END ==
LOC: M LAB REF 16:51
PROVIDERS: ATTEND Advanced Practice Midwife
DX: R10.2 Pelvic and perineal pain (principal)

== ENCOUNTER → 2019-07-20 | Outpatient (REF) | payer OTHER, MEDICAID ==
[2019-07-20 13:45] LABS: HCG, SERUM QUALITATIVE NEGATIVE (NEGATIVE)
== END ==
LOC: M LAB REF 12:38 → M LABDRAW1 12:38
PROVIDERS: ATTEND Advanced Practice Midwife
DX: R10.2 Pelvic and perineal pain (principal)

== ENCOUNTER → 2019-07-27 | Outpatient (CLI) | payer MEDICAID, OTHER ==
[~2019-07-27] MED LIST changes: +BETA5CR EXT
--- NOTE | 2019-07-28 13:41 | REP ---
Clinical: Pelvic and perineal pain . Technique: Transabdominal pelvic ultrasound followed by transvaginal examination for better evaluation of the endometrium and adnexa with color Doppler evaluation of the ovaries. Findings: Bladder is unremarkable and measures 4.8 x 4.1 x 2.7 cm . Normal anteverted uterus measures 8.7 x 3.8 x 4.9 cm . The endometrial complex measures 3.0 mm thickness. No discrete uterine or endometrial abnormalities are appreciated. Bilateral ovaries are normal in appearance and vascularity without evidence for torsion. Right ovary measures 2.7 x 2.6 x 2.1 cm with 1.6 cm physiologic cyst ; R I = 0.47 . Left ovary measures 2.4 x 1.9 x 1.9 cm ; R I = 0.46 . No pelvic fluid or adnexal mass lesion . Impression: 1. 1.6 cm dominant follicle/physiologic cyst in the right ovary. 2. Otherwise normal pelvic ultrasound. Electronically Signed by Jim Hinds MD 07/28/2019 01:33 P
== END ==
LOC: M RAD 10:18
PROVIDERS: ATTEND Advanced Practice Midwife
DX: R10.2 Pelvic and perineal pain (principal)

== ENCOUNTER → 2019-08-02 | Outpatient (REF) | payer OTHER, MEDICAID ==
[2019-08-02 13:52] LABS: CHOLESTEROL RISK RATIO 4.485 (<5); THYROID STIMULATING HORMONE 1.98 uIU/ML (0.358-3.740)
== END ==
LOC: M LAB REF 12:30
PROVIDERS: ATTEND Nurse Practitioner Family
DX: E78.5 Hyperlipidemia, unspecified (principal); E03.9 Hypothyroidism, unspecified

== ENCOUNTER 2019-08-08 05:48 | Day surgery (SDC) | payer OTHER ==
[~2019-08-08] VITALS: Ht 160 cm; Wt 95.3 kg
[2019-08-08] MEDS ORDERED: LR 1,000 ML IV ONE (06:00)
[2019-08-08] MEDS ORDERED: BUPIVACAINE HCL 0.25% 30 ML VIAL As Ordered ONE ×2 (06:55→06:56)
[2019-08-08] MEDS ORDERED: LIDOCAINE 2% INJ 100 MG/5 ML SDV (FOR ANES.) As Ordered ONE (07:14)
[2019-08-08] MEDS ORDERED: PROPOFOL 200 MG/20 ML VIAL As Ordered ONE (07:14)
[2019-08-08] MEDS ORDERED: fentaNYL 250 MCG/5 ML INJECTION (J3010) As Ordered ONE (07:14)
[2019-08-08] MEDS ORDERED: MIDAZOLAM INJ 2 MG/2 ML VIAL (J2250) As Ordered ONE (07:15)
[2019-08-08] MEDS ORDERED: ceFAZolin 2 GM/D5W 50 ML IV BAG (J0690 PER 500MG) As Ordered ONE (07:27)
[2019-08-08] MEDS ORDERED: ceFAZolin SOD 2 GM in IV 1 EA IV ONE (07:30)
[2019-08-08] MEDS ORDERED: ROCURONIUM BROMIDE 50 MG/5 ML VIAL As Ordered ONE (07:36)
[2019-08-08] MEDS ORDERED: dexameTHASONE 4 MG/ML 1ML VIAL (J1100) As Ordered ONE (08:19)
[2019-08-08] MEDS ORDERED: ONDANSETRON 4MG/2ML VIAL (J2405) As Ordered ONE (08:19)
[2019-08-08] MEDS ORDERED: METOCLOPRAMIDE INJ 10MG/2ML VIAL (J2765) As Ordered ONE (08:19)
[2019-08-08] MEDS ORDERED: KETOROLAC 60 MG/2 ML VIAL (J1885) As Ordered ONE (08:19)
[2019-08-08] MEDS ORDERED: fentaNYL 100 MCG/2 ML INJECTION (J3010) As Ordered ONE (09:04)
[2019-08-08] MEDS ORDERED: ACETAMINOPHEN 1000MG 100ML IV BTL (OFIRMEV) (J0131 PER 10MG) As Ordered ONE (09:06)
[2019-08-08] MEDS ORDERED: GLYCOPYRROLATE INJ 0.2 MG/ML 2 ML VIAL As Ordered ONE (09:09)
[2019-08-08] MEDS ORDERED: NEOSTIGMINE 10 MG/10 ML VIAL (J2710) As Ordered ONE (09:09)
[2019-08-08] MEDS ORDERED: PERCOCET 5MG/325MG TAB PO PRN (10:00)
[2019-08-08] MEDS ORDERED: HYDROMORPHONE HCL 0.5 MG/ 0.5 ML SYRINGE (J1170 PER 1) IV PRN (10:00)
[2019-08-08] MEDS ORDERED: fentaNYL 100 MCG/2 ML INJECTION (J3010) IV PRN (10:00)
[2019-08-08] MEDS ORDERED: LR 1,000 ML IV SCH ×2 (10:00→11:01)
[2019-08-08] MEDS ORDERED: ONDANSETRON 4MG/2ML VIAL (J2405) IV PRN (10:00)
[2019-08-08] MEDS ORDERED: oxyCODONE 5MG TAB As Ordered ONE (10:10)
[2019-08-08] MEDS: oxyCODONE 5MG TAB PO PRN ×2 (10:10→10:58)
--- NOTE | 2019-08-08 10:11 | REP ---
Left forefoot series: Four views. History: Bunionectomy. 15 seconds of fluoroscopy time is reported. Findings: A sequence of four last image hold fluoroscopically obtained spot radiographs of the forefoot document bunionectomy and osteotomy fixation with three metallic screws. Electronically Signed by Ronal José MD 08/08/2019 10:03 A
[2019-08-08 10:19] VITALS: BP 137/61
--- NOTE | 2019-08-08 14:59 | RO ---
DATE OF PROCEDURE: 08/08/2019 PREOPERATIVE DIAGNOSIS: Left hallux valgus. POSTOPERATIVE DIAGNOSIS: Left hallux valgus. PROCEDURE: Left bunionectomy with scarf osteotomy. SURGEON: Anuradha Diaz MD BANQUET MANAGER: Presley Christensen PA-C ANESTHESIA: General endotracheal. ESTIMATED BLOOD LOSS: 10 mL. COMPLICATIONS: None. CONDITION: Stable to recovery. IMPLANTS: Synthes 2.0 mm screws times three. INDICATION: Qian Rojas is a 24-year-old female who is here in regards to her left hallux valgus deformity. She has failed conservative measures. The risks and benefits of surgery were discussed with the patient in detail and include, but are not limited to infection, damage to nerves and blood vessels, continued pain and stiffness, need for additional procedures. Informed consent was obtained in the office. PROCEDURE: The patient was met in the holding are and the left lower extremity was marked as the correct operative site. She does have psoriasis on that leg and was warned that this could potentially lead to an increased risk of infection, however the patient wished to proceed with surgery. She was taken to the operating room, placed in the supine position on the operating room table. Bony prominences were well padded. Antibiotics were given within 60 minutes prior to incision. Left lower extremity was prepped and draped in the normal fashion. I did use Ioban to over the areas of psoriasis. Following this, an official time out was performed where the correct patient, operative side and operative procedure were verified. An Esmarch bandage was used to exsanguinate the leg. Incision was made in the first webspace. Careful dissection to the level of the first metatarsosesamoid joint was performed. The metatarsosesamoid ligament was then excised and a full lateral release was performed. I was able to get adequate correction. I did do the reduction maneuver with the toe in plantar flexion and varus. Next, attention was turned medially. An incision was made over the medial aspect of the first metatarsal. Care was taken to protect the dorsomedial sensory nerve. I then incised the capsule as well. The medial eminence was excised with a 38 saw blade. Following this, a scarf osteotomy was performed. I was able to easily translate the osteotomy to gain satisfactory correction of the bunion deformity. I clamped it and pinned it in place. Then I secured this with three 2.0 mm screws using lag by technique. Following this, a flat plate was used to assess correction. There was adequate direction so I did not proceed with an Ancelmo osteotomy. Redundant capsule was excised and capsule was tightened. This was repaired with #2-0 FiberWire. Copious irrigation was performed. Soft tissues were closed using #3-0 Vicryl and skin was closed using #3-0 nylon. The patient was placed into a well padded dressing and a postop shoe. She was extubated and transferred to the recovery room in stable condition. PLAN: The patient will be non-weightbearing to the left lower extremity. I will see her back in two weeks for suture removal. She will be on aspirin for deep vein thrombosis (DVT) prophylaxis.
== END 2019-08-08 11:30 | disposition home or self-care (01) ==
LOC: M SDC 05:48
PROVIDERS: ATTEND Orthopaedic Surgery
DX: M20.12 Hallux valgus (acquired), left foot (principal); E03.9 Hypothyroidism, unspecified; D64.9 Anemia, unspecified; L40.9 Psoriasis, unspecified; Z79.899 Other long term (current) drug therapy
CPT/HCPCS: 28296; 76000; 81025; 97116; C1713; J0131; J0690; J1100; J1885; J2250; J2405; J2710; J2765; J3010

== ENCOUNTER → 2019-10-19 | Outpatient (CLI) | payer OTHER | LOC: M LAB 13:32 | PROVIDERS: ATTEND Internal Medicine Gastroenterology | DX: R11.0 Nausea (principal) ==

== ENCOUNTER → 2019-11-15 | Outpatient (REF) | payer OTHER, MEDICAID ==
[2019-11-15 18:34] LABS: CHOLESTEROL RISK RATIO 3.952 (<5); FREE T4 0.59 NG/DL (0.76-1.46); THYROID STIMULATING HORMONE 53.9 uIU/ML (0.358-3.740)
== END ==
LOC: M LAB REF 17:14
PROVIDERS: ATTEND Nurse Practitioner Family
DX: E78.5 Hyperlipidemia, unspecified (principal)

== ENCOUNTER → 2019-11-28 | Outpatient (REF) | payer OTHER, MEDICAID ==
[2019-11-28 19:59] LABS: FREE T4 0.63 NG/DL (0.76-1.46); THYROID STIMULATING HORMONE 38.4 uIU/ML (0.358-3.740); TOTAL T3 151.4 NG/DL (60.0-181.0)
== END ==
LOC: M LAB REF 18:59
PROVIDERS: ATTEND Nurse Practitioner Family
DX: Z32.01 Encounter for pregnancy test, result positive (principal); E03.9 Hypothyroidism, unspecified

== ENCOUNTER 2019-12-19 11:24 | Emergency (ER) | payer MEDICAID, OTHER ==
[~2019-12-19] VITALS: Ht 160 cm; Wt 97.8 kg
[2019-12-19] MEDS ORDERED: ACETAMINOPHEN 325 MG TAB PO ONE (12:00)
--- NOTE | 2019-12-19 13:06 | REP ---
Bilateral lower extremity Duplex Doppler venous ultrasound: Real time compression and duplex Doppler interrogation of the bilateral lower extremity deep venous system is performed. Bilaterally, the common femoral, superficial femoral and popliteal veins are fully compressible with transducer pressure and demonstrate normal spontaneous and phasic flow, without evidence of deep venous thrombosis. Impression: No evidence of deep venous thrombosis of the bilateral lower extremity femoral popliteal venous system. Electronically Signed by Wang Hernandez MD 12/19/2019 12:58 P
[2019-12-19 13:18] VITALS: BP 131/69
--- NOTE | 2019-12-19 20:14 | ECGEPIP ---
[facility] - ED Test Date: 2019-12-19 Pat Name: VIRGINIA VELARDE Department: Room: - Gender: Female Front End Developer: [facility] : 1995 Requested By: TACOS MALAGON PA-C. Order Number: [id number] Reading MD: Elizabeth Serrano Measurements Intervals Ulman Rate: 87 P: 35 MO: 130 QRS: 34 QRSD: 94 T: 28 QT: 377 QTc: 455 Interpretive Statements SINUS RHYTHM NO PRIOR Electronically Signed on 12-19-2019 20:14:47 EDT by Elizabeth Serrano
== END 2019-12-19 13:19 | disposition home or self-care (01) ==
LOC: M ED 11:24
DX: O99.89 Other specified diseases and conditions complicating pregnancy, childbirth and the puerperium (principal); H65.03 Acute serous otitis media, bilateral; R07.89 Other chest pain; Z79.899 Other long term (current) drug therapy; Z3A.08 8 weeks gestation of pregnancy

== ENCOUNTER → 2019-12-28 | Outpatient (REF) | payer OTHER ==
[2019-12-28 13:34] LABS: HEMATOCRIT 38.5 % (36.0-47.0); HEMOGLOBIN 12.5 g/dl (12.0-15.5); MEAN CORPUSCULAR HEMOGLOBIN 28.1 pg (27.0-33.0); MEAN CORPUSCULAR HGB CONC 32.5 g/dl (32.0-36.5); MEAN CORPUSCULAR VOLUME 86.5 fl (80.0-96.0); PLATELET COUNT, AUTOMATED 233 10^3/uL (150-450); RED BLOOD COUNT 4.45 10^6/uL (4.00-5.40); WHITE BLOOD COUNT 6.5 10^3/uL (4.0-10.0)
[2019-12-28 13:53] LABS: FREE T3 2.8 PG/ML (2.2-4.0); FREE T4 0.75 NG/DL (0.76-1.46)
[2019-12-29 09:33] LABS: RUBELLA IgG QUALITATIVE IMMUNE (IMMUNE)
[2019-12-29 09:34] LABS: HEPATITIS B SURFACE ANTIGEN NEGATIVE (NEGATIVE)
[2019-12-29 10:02] LABS: HIV 1&2 SCREEN CENTAUR NEGATIVE (NEGATIVE)
== END ==
LOC: M LAB REF 13:01
PROVIDERS: ATTEND Obstetrics & Gynecology
DX: O36.80X0 Pregnancy with inconclusive fetal viability, not applicable or unspecified (principal); E03.9 Hypothyroidism, unspecified

== ENCOUNTER → 2019-12-29 | Outpatient (CLI) | payer OTHER ==
--- NOTE | 2019-12-29 11:37 | REP ---
EARLY OB ULTRASOUND: REASON: Supervision of . Transvesical and transvaginal imaging was obtained. The uterus measures 11.9 x 8.1 x 7.2 cm. Within the uterus there is anechoic structure with increased echoes surrounding it consistent with a decidual reaction. Within the gestational sac there is an enlarged secondary anechoic structure suggestive of an enlarged yolk sac. Within the gestational sac there is echogenic material the mean crown-rump length measurement of which is consistent with a 6 week 2 day gestational age. Doppler interrogation of this shows no cardiac activity. The right ovary measures 8.7 x 5.7 x 6.4 cm. Within the right ovary there is a 6.2 x 5.1 x 5.6 cm sized anechoic structure. The right ovarian RI is 0.61. The left ovary measures 2.9 x 2.1 x 1.7 cm and is within normal limits with an RI 0.56. IMPRESSION: 1. There is what appears to be an abnormal yolk sac and a pole which does not have Doppler evidence of cardiac activity at this time. demise is likely, however, this needs to be correlated clinically with appropriate followup. 2. There is evidence of a right ovarian corpus luteum cyst as described above. A stat report was generated at this time and faxed to the attention of Dr. Jonathan Hernandez. In addition, a phone call was placed to Dr. Hernandez and these findings were discussed with him at this time. Electronically Signed by Jordan Montelongo DO 12/29/2019 12:46 P
== END ==
LOC: M RAD 09:35
PROVIDERS: ATTEND Obstetrics & Gynecology
DX: O36.80X0 Pregnancy with inconclusive fetal viability, not applicable or unspecified (principal)

== ENCOUNTER → 2020-01-01 | Outpatient (REF) | payer OTHER | LOC: M LAB REF 13:19 | PROVIDERS: ATTEND Obstetrics & Gynecology | DX: O36.80X0 Pregnancy with inconclusive fetal viability, not applicable or unspecified (principal) ==

== ENCOUNTER 2020-01-09 18:28 | Emergency (ER) | payer OTHER ==
[~2020-01-09] VITALS: Ht 160 cm; Wt 95.2 kg
[2020-01-09] MEDS ORDERED: tylenol 2 tabs (18:35)
[2020-01-09] MEDS ORDERED: LEVO100T5 (18:35)
[2020-01-09] MEDS ORDERED: CEFD1CAP8 (18:35)
[2020-01-09] MEDS ORDERED: ibuprofen 600 (18:35)
[2020-01-09] MEDS ORDERED: KETOROLAC 30 MG/ML VIAL (J1885) IV ONE (19:00)
[2020-01-09] MEDS ORDERED: NS 1,000 ML IV ONE (19:00)
[2020-01-09 19:36] LABS: BASO % 0.4 % (0.0-1.0); EOS # 0.1 10^3/uL (0.0-0.5); EOS % 1.4 % (0.0-3.0); HEMATOCRIT 35.2 % (36.0-47.0); HEMOGLOBIN 11.3 g/dl (12.0-15.5); LYMPH # 1.6 10^3/uL (1.5-5.0); LYMPH % 22.6 % (24.0-44.0); MEAN CORPUSCULAR HEMOGLOBIN 27.4 pg (27.0-33.0); MEAN CORPUSCULAR HGB CONC 32.1 g/dl (32.0-36.5); MEAN CORPUSCULAR VOLUME 85.4 fl (80.0-96.0); MONO # 0.5 10^3/uL (0.0-0.8); MONO % 7.1 % (0.0-5.0); NEUTROPHILS # 4.8 10^3/uL (1.5-8.5); NEUTROPHILS % 68.2 % (36.0-66.0); PLATELET COUNT, AUTOMATED 209 10^3/uL (150-450); RED BLOOD COUNT 4.12 10^6/uL (4.00-5.40); WHITE BLOOD COUNT 7.1 10^3/uL (4.0-10.0)
[2020-01-09 19:41] LABS: BILIRUBIN, URINE MANUAL NEGATIVE (NEGATIVE); GLUCOSE, URINE (UA) MANUAL NEGATIVE (NEGATIVE); KETONE, URINE MANUAL 2+ mg/dL (NEGATIVE); UROBILINOGEN, URINE MANUAL NORMAL (NORMAL)
[2020-01-09 19:43] LABS: RBC, URINE TNTC /hpf (0-3)
[2020-01-09 19:44] LABS: BACTERIA, URINE SMALL AMOUNT; SQUAMOUS EPITHELIAL CELL URINE SMALL AMOUNT /hpf (SMALL AMT)
[2020-01-09 19:45] LABS: HYALINE CAST, URINE NONE SEEN /lpf (0-1)
--- NOTE | 2020-01-09 20:08 | REPVR ---
PROCEDURE INFORMATION: Exam: US First Trimester, Transabdominal Exam date and time: 01/09/2020 7:50 PM Age: 24 years old Clinical indication: Lmp or gestational age (in weeks): Lmp 10/21/19; Antepartum complications; Bleeding; ; Additional info: Miscarrying, abnl heavy bleeding TECHNIQUE: Imaging protocol: Real-time transabdominal obstetrical ultrasound of the maternal pelvis and a first trimester , less than 14 weeks 0 days, with image documentation. COMPARISON: No relevant prior studies available. FINDINGS: GESTATION: Gestation: Irregularly-shaped gestational sac demonstrated within the cervix. Heart rate: There is absent cardiac activity. BIOMETRY: Estimated gestational age: pole demonstrated within the gestational sac measuring 5.7 mm corresponding to a gestational age of 6 weeks 3 days in this patient who is 11 weeks 3 days based on LMP of 10/21/2019. MATERNAL: Uterus: Uterus measures 13 x 6 x 6.9 cm. Cervix: Unremarkable. Right adnexa: Right adnexal cyst measures 2.8 x 3.5 cm containing debris posteriorly. Finding likely represents an involuting functional cyst. Otherwise unremarkable. Left adnexa: Unremarkable. Intraperitoneal: Minimal free fluid. IMPRESSION: Abnormally low positioned gestational sac with a pole and absent cardiac activity, findings consistent with early failure and impending spontaneous extrusion of the gestational sac. Electronically signed by: Alcides Beckford On 01/09/2020 20:08:27 PM
[2020-01-09 21:17] VITALS: BP 130/75
== END 2020-01-09 21:34 | disposition home or self-care (01) ==
LOC: M ED 18:28
DX: O03.4 Incomplete spontaneous abortion without complication (principal); O99.281 Endocrine, nutritional and metabolic diseases complicating pregnancy, first trimester; E03.9 Hypothyroidism, unspecified; Z79.899 Other long term (current) drug therapy; Z79.2 Long term (current) use of antibiotics
CPT/HCPCS: 76801; 80047; 81000; 84702; 85025; 86850; 86900; 86901; 93976; 96361; 96374; 99284; J1885

== ENCOUNTER → 2020-01-16 | Outpatient (REF) | payer OTHER ==
[~2020-01-16] MED LIST changes: +CEFD1CAP8; +LEVO100T5; +ibuprofen 600; +tylenol 2 tabs
== END ==
LOC: M LAB REF 17:49
PROVIDERS: ATTEND Obstetrics & Gynecology
DX: O02.1 Missed abortion (principal)

== ENCOUNTER → 2020-01-23 | Outpatient (REF) | payer OTHER | LOC: M LAB REF 16:57 | PROVIDERS: ATTEND Obstetrics & Gynecology | DX: O03.39 Incomplete spontaneous abortion with other complications (principal) ==

== ENCOUNTER → 2020-02-07 | Outpatient (REF) | payer OTHER | LOC: M LAB REF 11:21 | PROVIDERS: ATTEND Obstetrics & Gynecology | DX: O03.39 Incomplete spontaneous abortion with other complications (principal) ==

== ENCOUNTER 2020-02-14 15:46 | Emergency (ER) | payer OTHER ==
[~2020-02-14] VITALS: Ht 160 cm; Wt 96.2 kg
[~2020-02-14 15:46] MED LIST changes: -CEFD1CAP8; +CEFD1CAP8 PO
[2020-02-14 15:47] VITALS: BP 154/85
== END 2020-02-14 17:41 | disposition left against medical advice (07) ==
LOC: M ED 15:46
DX: Z85.21 Personal history of malignant neoplasm of larynx (principal)

== ENCOUNTER → 2020-03-01 | Outpatient (CLI) | payer OTHER ==
[2020-03-01 15:59] LABS: FREE T4 0.93 NG/DL (0.76-1.46); THYROID STIMULATING HORMONE 6.93 uIU/ML (0.358-3.740)
[2020-03-01 16:00] LABS: THYROID PEROXIDASE ANTIBODY 1045.7 U/ML (<60.0)
== END ==
LOC: M PLALAB 11:53
PROVIDERS: ATTEND Nurse Practitioner Family
DX: E03.9 Hypothyroidism, unspecified (principal)

== ENCOUNTER 2020-03-27 13:33 | Emergency (ER) | payer OTHER ==
[~2020-03-27] VITALS: Ht 160 cm; Wt 91.4 kg
[2020-03-27 13:34] VITALS: BP 141/93
[2020-03-27] MEDS ORDERED: NORC1TAB7 PO (13:52)
[2020-03-27] MEDS ORDERED: PENI500T PO (13:52)
== END 2020-03-27 13:57 | disposition home or self-care (01) ==
LOC: M ED 13:33
DX: K04.7 Periapical abscess without sinus (principal)

== ENCOUNTER → 2020-05-10 | Outpatient (REF) | payer OTHER ==
[~2020-05-10] MED LIST changes: +NORC1TAB7 PO; +PENI500T PO
[2020-06-24 20:15] LABS: FREE T4 0.92 NG/DL (0.76-1.46); THYROID STIMULATING HORMONE 5.92 uIU/ML (0.358-3.740)
== END ==
LOC: M PLALAB 06:50
PROVIDERS: ATTEND Nurse Practitioner Family
DX: E06.3 Autoimmune thyroiditis (principal)

== ENCOUNTER → 2020-07-10 | Outpatient (CLI) | payer OTHER ==
--- NOTE | 2020-07-15 09:01 | REP ---
OBSTETRIC SONOGRAPHY HISTORY: Supervision of . FINDINGS: Scanning through the abdominal wall demonstrates good visualization of an intrauterine gestational sac. The crown-rump length of the living embryonic pole is 1.0 cm. This corresponds with a gestational age estimate of 7 weeks 1 day. heart rate is recorded at 144 beats per minute. There is an anechoic area to the left of the gestational sac. This measures 1.3 x 0.8 x 1.6 cm in diameter and may be a small subchorionic bleed. There is a 1.5 cm corpus luteum cyst in the maternal right ovary. IMPRESSION: Viable single living intrauterine gestation 7 weeks 1 day by crown-rump length. Estimated date of delivery (THIEN) by sonography 02/25/2021. MTDD
== END ==
LOC: M RAD 15:13
PROVIDERS: ATTEND Advanced Practice Midwife
DX: Z34.81 Encounter for supervision of other normal pregnancy, first trimester (principal)

== ENCOUNTER → 2020-07-17 | Outpatient (CLI) | payer OTHER ==
[2020-07-17 14:26] LABS: FREE T4 1.25 NG/DL (0.76-1.46); THYROID STIMULATING HORMONE 1.16 uIU/ML (0.358-3.740)
== END ==
LOC: M PLALAB 10:45
PROVIDERS: ATTEND Nurse Practitioner Family
DX: E06.3 Autoimmune thyroiditis (principal)

== ENCOUNTER → 2020-10-02 | Outpatient (CLI) | payer OTHER ==
[2020-10-02 13:55] LABS: FREE T4 0.82 NG/DL (0.76-1.46); THYROID STIMULATING HORMONE 5.87 uIU/ML (0.358-3.740)
== END ==
LOC: M PLALAB 11:11
PROVIDERS: ATTEND Nurse Practitioner Family
DX: E06.3 Autoimmune thyroiditis (principal)

== ENCOUNTER → 2020-10-08 | Outpatient (CLI) | payer OTHER ==
--- NOTE | 2020-10-08 08:14 | REP ---
INDICATION: 2ND TRIMESTER COMPARISON: None. TECHNIQUE: Transabdominal obstetrical ultrasound with color Doppler evaluation. FINDINGS: Examination demonstrates a single live intrauterine in breech presentation. motion is identified by technologist. Placenta is noted fundal and grade 1 without evidence for placenta previa or abruption. Amniotic fluid volume is normal. Cervix measures 3.3 cm in length and appears closed.. Gestational age by LMP 20 weeks 2 days with THIEN 02/23/2021. Gestational age by current measurements 20 weeks 4 days with THIEN 02/21/2021. FHR equals 120 beats per minute. BPD: 4.7 cm 20 weeks 2 days HC: 18.2 cm 20 weeks 4 days AC: 15.3 cm 20 weeks 3 days FL: 3.5 cm 21 weeks 0 days HL: 3.2 cm it 20 weeks 5 days HC/AC: 1.19 Estimated weight 369 grams (69thpercentile). Anatomical assessment demonstrates normal structures including cranium, choroid plexus, cavum, cerebellum/posterior fossa, lungs, four-chamber heart/ventricular outflow tracts, diaphragm, stomach, cord insertion/three-vessel cord, kidneys/bladder, and extremities. Limited evaluation of the facial features and spine due to positioning. IMPRESSION: 1. Single live intrauterine in breech presentation demonstrating appropriate estimated weight and growth. 2. Limited evaluation of the facial features and spine may warrant re-evaluation and follow-up. Remainder of the anatomical assessment is complete and normal. <Electronically signed by Jim Hinds > 10/08/20 [id number]
== END ==
LOC: M RAD 06:50
PROVIDERS: ATTEND Obstetrics & Gynecology
DX: O32.1XX0 Maternal care for breech presentation, not applicable or unspecified (principal); Z3A.20 20 weeks gestation of pregnancy

== ENCOUNTER → 2020-10-28 | Outpatient (CLI) | payer OTHER ==
--- NOTE | 2020-10-28 09:02 | REP ---
INDICATION: ANATOMY F/U COMPARISON: 10/08/2020 TECHNIQUE: Transabdominal obstetrical ultrasound with color Doppler evaluation. FINDINGS: Examination demonstrates a single live intrauterine in cephalic presentation. motion is identified by technologist. Placenta is noted anterior and grade 1 without evidence for placenta previa or abruption. Amniotic fluid volume is normal. Cervix measures 5.1 cm in length and appears closed.. Gestational age by LMP 23 weeks 3 days with THIEN 02/21/2021. Gestational age by current measurements 24 weeks 2 days with THIEN 02/15/2021. FHR equals 160 beats per minute. Estimated weight 689 grams (greater than 97thpercentile based on age by LMP). Anatomical assessment demonstrates normal structures including cranium, choroid plexus, cavum, cerebellum/posterior fossa, lungs, four-chamber heart/ventricular outflow tracts, diaphragm, stomach, cord insertion/three-vessel cord, kidneys/bladder, spine, and extremities. IMPRESSION: Single live intrauterine in cephalic presentation. Estimated weight as above. Continued limited evaluation of the facial features due to positioning. Remainder of the anatomical assessment is complete and normal. <Electronically signed by Jim Hinds > 10/28/20 [id number]
== END ==
LOC: M RAD 07:46
PROVIDERS: ATTEND Advanced Practice Midwife
DX: Z34.82 Encounter for supervision of other normal pregnancy, second trimester (principal); Z36.2 Encounter for other antenatal screening follow-up; Z3A.23 23 weeks gestation of pregnancy

== ENCOUNTER → 2020-10-28 | Outpatient (CLI) | payer OTHER ==
[2020-10-28 09:48] LABS: FREE T4 0.77 NG/DL (0.76-1.46); THYROID STIMULATING HORMONE 5.16 uIU/ML (0.358-3.740)
== END ==
LOC: M LAB 07:55
PROVIDERS: ATTEND Nurse Practitioner Family
DX: E06.3 Autoimmune thyroiditis (principal)

== ENCOUNTER → 2020-11-27 | Outpatient (CLI) | payer OTHER ==
[2020-11-27 11:58] LABS: HEMATOCRIT 33.3 % (36.0-47.0); HEMOGLOBIN 10.5 g/dl (12.0-15.5); MEAN CORPUSCULAR HEMOGLOBIN 27.7 pg (27.0-33.0); MEAN CORPUSCULAR HGB CONC 31.5 g/dl (32.0-36.5); MEAN CORPUSCULAR VOLUME 87.9 fl (80.0-96.0); PLATELET COUNT, AUTOMATED 210 10^3/uL (150-450); RED BLOOD COUNT 3.79 10^6/uL (4.00-5.40); WHITE BLOOD COUNT 7.8 10^3/uL (4.0-10.0)
== END ==
LOC: M LAB 10:16
PROVIDERS: ATTEND Obstetrics & Gynecology
DX: Z34.82 Encounter for supervision of other normal pregnancy, second trimester (principal); Z3A.00 Weeks of gestation of pregnancy not specified

== ENCOUNTER → 2020-11-27 | Outpatient (CLI) | payer OTHER ==
[2020-11-27 12:31] LABS: FREE T4 0.75 NG/DL (0.76-1.46); THYROID STIMULATING HORMONE 3.51 uIU/ML (0.358-3.740)
== END ==
LOC: M LAB 10:19
PROVIDERS: ATTEND Nurse Practitioner Family
DX: E06.3 Autoimmune thyroiditis (principal)

== ENCOUNTER 2020-12-09 23:55 | Outpatient (CLI) | payer OTHER ==
[~2020-12-09] VITALS: Ht 160 cm; Wt 102.9 kg
[~2020-12-09 23:55] MED LIST changes: -LEVO112T2 PO
[2020-12-10 00:14] VITALS: BP 127/71
[2020-12-10] MEDS ORDERED: LEVO112T2 PO (00:21)
[2020-12-10 01:22] LABS: APPEARANCE, URINE CLEAR (CLEAR); BACTERIA, URINE AUTO 1+ (NEGATIVE); BILIRUBIN, URINE AUTO NEGATIVE (NEGATIVE); BLOOD, URINE BLOOD 1+ (NEGATIVE); COLOR, URINE STRAW (YELLOW); GLUCOSE, URINE (UA) AUTO NEGATIVE (NEGATIVE); KETONE, URINE AUTO NEGATIVE (NEGATIVE); LEUKOCYTE ESTERASE, URINE AUTO TRACE (NEGATIVE); MUCUS, URINE SMALL (NEGATIVE); NITRITE, URINE AUTO POSITIVE (NEGATIVE); PROTEIN, URINE AUTO NEGATIVE (NEGATIVE); RBC, URINE AUTO 1 /HPF (0-3); SPECIFIC GRAVITY URINE AUTO 1.009 (1.002-1.035); SQUAMOUS EPITHELIAL CELL UR AU 2 /HPF (0-6); UROBILINOGEN, URINE AUTO 0.2 mg/dL (0.0-2.0); WBC, URINE AUTO 1 /HPF (0-3)
[2020-12-10 01:43] VITALS: BP 113/65
--- NOTE | 2020-12-10 02:07 | REPVR ---
PROCEDURE INFORMATION: Exam: US , Transvaginal limited Exam date and time: 12/10/2020 1:43 AM Age: 25 years old Clinical indication: Lmp or gestational age (in weeks): 29w 2d; Antepartum complications; Other: Labor check; ; Additional info: Cervical length TECHNIQUE: Imaging protocol: Real-time transvaginal obstetrical ultrasound of the maternal pelvis and a first trimester with image documentation. Transvaginal imaging was used for better evaluation of the fetus, adnexa, and/or cervix. COMPARISON: US OBS FOLL UP OR REPEAT EACH GES 10/28/2020 8:57 AM FINDINGS: heart rate is 152 bpm. Detailed imaging was not performed. Cervix measures 4.8 cm. Cervical canal appears closed. No funneling is seen. IMPRESSION: Cervix measures 4.8 cm. No funneling is seen. Electronically signed by: Gage Velasquez On 12/10/2020 02:08:00 AM
[2020-12-10 02:51] VITALS: BP 112/65
== END 2020-12-10 03:01 | disposition home or self-care (01) ==
LOC: M LDO 23:55
PROVIDERS: ATTEND Advanced Practice Midwife
DX: O26.893 Other specified pregnancy related conditions, third trimester (principal); Z3A.29 29 weeks gestation of pregnancy

== ENCOUNTER → 2020-12-09 | Outpatient (CLI) | payer OTHER ==
[~2020-12-09] MED LIST changes: +LEVO112T2 PO
== END ==
LOC: M LAB 08:10
PROVIDERS: ATTEND Advanced Practice Midwife
DX: O99.810 Abnormal glucose complicating pregnancy (principal)

== ENCOUNTER 2020-12-27 12:02 | Outpatient (CLI) | payer OTHER ==
[~2020-12-27] VITALS: Ht 160 cm; Wt 102.9 kg
[~2020-12-27 12:02] MED LIST changes: +LEVO112T2 PO
[2020-12-27] MEDS ORDERED: LEVO200T4 PO (12:16)
[2020-12-27] MEDS ORDERED: ACET-907 PO (12:16)
[2020-12-27 12:18] VITALS: BP 129/67
[2020-12-27] MEDS ORDERED: LEVOTHYROXINE 100MCG TABLET (0.1MG) PO SCH (12:40)
--- NOTE | 2020-12-27 13:26 | REP ---
INDICATION: tachycardia. COMPARISON: 12/10/2020. TECHNIQUE: Real-time sonographic evaluation of the gravid uterus performed. FINDINGS: Estimated gestational age is31 weeks 5 days, EDC 02/23/2021. Presentation: Breech Placenta anterior, grade 1, without evidence of placenta previa. heart rate is recorded at 200 beats per minute. Amniotic fluid is subjectively normal. GIO 12.4, normal range 8.7-24.1. Biophysical profile score 8/8. SD ratio umbilical artery 2.53, normal 1.86-3.90. RI 0.60, normal 0.50-0.75. Closed cervical length is measured at 4.0 cm. IMPRESSION: Viable single intrauterine gestation as above. tachycardia with heart rate ranging between 200 and 205 beats per minute. Biophysical profile score 8/8. <Electronically signed by Wang Hernandez > 12/27/20 [id number]
--- NOTE | 2020-12-27 13:32 | IPNPDOC ---
Text Note Date of Service The patient was seen on 12/27/20. NOTE Outpatient 25yo G [id number] THIEN 02/23/2021. Presents from [facility] office after routine appoint. tachycardia was noted. is essentially uncomplicated. Hypothyroid, currently on levothyroixine 200mcg. Hasn't taken her dose for the past few days "forgot" Also hasn't eaten much today. Upon initial evaluation, Cat I tracing, no UC. Upon return from [facility], initially 145 baseline with spontaneous change to 190's. IV bolus initiated. Will update physician VS,Navdeepbone, I+O VS, Navdeepbone, I+O Vital Signs Date Time Temp Pulse Resp B/P (MAP) Pulse Ox O2 Delivery O2 Flow Rate FiO2 12/27/20 12:18 98.4 112 16 129/67 (87) Noemi Santos CNM Dec 27, 2020 13:32
[2020-12-27 14:27] LABS: AMPHETAMINES URINE REFLEX NEGATIVE (NEGATIVE); BARBITURATES URINE REFLEX NEGATIVE (NEGATIVE); BENZODIAZEPINES URINE REFLEX NEGATIVE (NEGATIVE); CANNABINOIDS URINE REFLEX NEGATIVE (NEGATIVE); COCAINE METABOLITE URINE REFLE NEGATIVE (NEGATIVE); METHADONE URINE REFLEX NEGATIVE (NEGATIVE); OPIATES URINE REFLEX NEGATIVE (NEGATIVE); PHENCYCLIDINE URINE REFLEX NEGATIVE (NEGATIVE)
--- NOTE | 2020-12-27 14:28 | IPNPDOC ---
Text Note Date of Service The patient was seen on 12/27/20. NOTE [facility] 8/8. FH baseline 140's with abrupt broken changes to 180's. Cat I tracings with exception of baseline FH. Reviewed pt status with Dr Parikh. Aileen GLOVER @ [facility] notified of pt status; aware of need for [facility] consult for cardiology Pt informed. Instructed to be sure to take her synthroid daily due to potential contribution to status. Also encourage to eat and drink regularly. Discharged home. BPP faxed to [facility]. Pt instructed to make office appt for next week. VS,Fishbone, I+O VS, Fishbone, I+O Vital Signs Date Time Temp Pulse Resp B/P (MAP) Pulse Ox O2 Delivery O2 Flow Rate FiO2 12/27/20 12:18 98.4 112 16 129/67 (87) Noemi Santos CNM Dec 27, 2020 14:28
[2020-12-27] MEDS ORDERED: LR 1,000 ML IV ONE (14:30)
== END 2020-12-27 14:56 | disposition home or self-care (01) ==
LOC: M LDO 12:02
PROVIDERS: ATTEND Advanced Practice Midwife
DX: O36.8330 Maternal care for abnormalities of the fetal heart rate or rhythm, third trimester, not applicable or unspecified (principal); Z3A.31 31 weeks gestation of pregnancy; O99.283 Endocrine, nutritional and metabolic diseases complicating pregnancy, third trimester; E03.9 Hypothyroidism, unspecified; Z91.14 Patient's other noncompliance with medication regimen

== ENCOUNTER → 2020-12-31 | Outpatient (REF) | payer OTHER ==
[~2020-12-31] MED LIST changes: +ACET-907 PO; +LEVO200T4 PO
[2020-12-31 17:40] LABS: FREE T3 2.8 PG/ML (2.2-4.0); FREE T4 0.94 NG/DL (0.76-1.46); THYROID STIMULATING HORMONE 2.07 uIU/ML (0.358-3.740)
== END ==
LOC: M LAB REF 16:26
PROVIDERS: ATTEND Advanced Practice Midwife
DX: O36.8330 Maternal care for abnormalities of the fetal heart rate or rhythm, third trimester, not applicable or unspecified (principal)

== ENCOUNTER → 2021-01-10 | Outpatient (CLI) | payer OTHER ==
[2021-01-10 12:43] LABS: FREE T4 1.22 NG/DL (0.76-1.46); THYROID STIMULATING HORMONE 0.47 uIU/ML (0.358-3.740)
== END ==
LOC: M LAB 11:06
PROVIDERS: ATTEND Internal Medicine
DX: E06.3 Autoimmune thyroiditis (principal)

== ENCOUNTER 2021-01-21 03:29 | Outpatient (CLI) | payer OTHER ==
[~2021-01-21] VITALS: Ht 160 cm; Wt 104.0 kg
[2021-01-21 03:43] VITALS: BP 131/75
[2021-01-21 05:17] VITALS: BP 134/65
[2021-01-21 06:41] VITALS: BP 127/67
--- NOTE | 2021-01-21 08:35 | IPNPDOC ---
Text Note Date of Service The patient was seen on 01/21/21. NOTE Subjective: Qian is a 25-year-old female who is a who is a 35.2 weeks gestation with an THIEN of 02/23/21 based off of her LMP and consistent with her 1st trimester ultrasound. She receives care from [facility]. Her has been uncomplicated. She presents with complaints of feeling moist and thinks her water has broken. She denies any gushes of fluid or soaking through pad. PMHx: obese, hypothyroid SHx: bunionectomy FHx: HTN, anemia Social Hx: from , denies being a smoker, denies alcohol or drug use OB Hx: -01/2014 at 39.2 weeks male at 9 lbs 1 oz -03/2015 at 39.2 weeks male at 7 lbs -02/2016 at 39 weeks male at 8 lbs 10 oz. Objective: VS and labs see below. General: No apparent distress Respiratory: regular rate with no use of accessory muscles Abdomen: soft and non-tender; no pain with palpation SSE: scant amount of thin white discharge noted in vagina, no pooling of fluid, no fluid from cervical os with Valsalva. Negative nitrazine. Bedside US: cephalic presentation, active movement noted, GIO of 15.99 cm. Assessment: IUP at 35.2 weeks gestation, not spontaneously ruptured Plan: GBS obtained. Reviewed findings with patient. Patient discharged to home with precautions. Reviewed access to care, kick count, labor signs and danger signs to report. VS,Fishbone, I+O VS, Fishbone, I+O Vital Signs Date Time Temp Pulse Resp B/P (MAP) Pulse Ox O2 Delivery O2 Flow Rate FiO2 01/21/21 06:41 90 18 127/67 (87) 01/21/21 03:43 98.2 99 Room Air NATHANIEL THIBODEAUX CNM Jan 21, 2021 08:34
== END 2021-01-21 07:20 | disposition home or self-care (01) ==
LOC: M LDO 03:29
PROVIDERS: ATTEND Advanced Practice Midwife
DX: Z34.83 Encounter for supervision of other normal pregnancy, third trimester (principal); Z3A.35 35 weeks gestation of pregnancy

== ENCOUNTER 2021-02-11 21:41 | Outpatient (CLI) | payer OTHER ==
[~2021-02-11] VITALS: Ht 182.9 cm; Wt 105.0 kg
[~2021-02-11 21:41] MED LIST changes: +ACET-897 PO; +GABA-283 PO; -GABA-845 PO; +TUMS500C PO
[2021-02-11 22:02] VITALS: BP 132/84
--- NOTE | 2021-02-11 22:54 | IPNPDOC ---
Obstetrical Progress Note Date of Service February 11, 2021 Subjective 25 yo presents with decreased movement for one day. Pt of Dr. Haq [facility]. Objective Vital Signs Date Time Temp Pulse Resp B/P (MAP) Pulse Ox O2 Delivery O2 Flow Rate FiO2 02/11/21 22:02 99.4 103 18 132/84 (100) 99 Room Air Assessment Variability: Moderate Accelerations: Positive Decelerations: None Heart Rate Tracing: Category I Tocometer Contractions: No Assessment and Plan Status: Reassuring Additional Comments 25 yo at 38 weeks with decreased movements Numerous movements noted by patient after arrival in triage Pt reassured f-u Dr. Haq 02/13/21 BORIS IQBAL MD February 11, 2021 22:54
== END 2021-02-11 22:25 | disposition home or self-care (01) ==
LOC: M LDO 21:41
PROVIDERS: ATTEND Specialist
DX: O36.8130 Decreased fetal movements, third trimester, not applicable or unspecified (principal); Z3A.38 38 weeks gestation of pregnancy

== ENCOUNTER 2021-02-18 12:21 | Inpatient (IN) | payer OTHER ==
[2021-02-18] VITALS (28 sets, daily range): BP systolic 118–151; BP diastolic 58–98
[~2021-02-18] VITALS: Ht 160 cm; Wt 106.1 kg
[2021-02-18] MEDS ORDERED: OXYTOCIN DRIP 30 UNITS in IV 1 EA IV SCH ×2 (12:35→18:25)
[2021-02-18] MEDS: LR 1,000 ML IV SCH ×2 (12:55→15:34)
[2021-02-18 13:19] LABS: HEMATOCRIT 34.5 % (36.0-47.0); HEMOGLOBIN 10.9 g/dl (12.0-15.5); MEAN CORPUSCULAR HEMOGLOBIN 26.7 pg (27.0-33.0); MEAN CORPUSCULAR HGB CONC 31.6 g/dl (32.0-36.5); MEAN CORPUSCULAR VOLUME 84.6 fl (80.0-96.0); PLATELET COUNT, AUTOMATED 217 10^3/uL (150-450); RED BLOOD COUNT 4.08 10^6/uL (4.00-5.40); WHITE BLOOD COUNT 9.2 10^3/uL (4.0-10.0)
[2021-02-18 13:56] LABS: ALT/SGPT 13 U/L (12-78); BILIRUBIN,TOTAL 0.2 MG/DL (0.2-1.0); CREATININE FOR GFR 0.53 MG/DL (0.55-1.30); GLOMERULAR FILTRATION RATE > 60.0 (>60); LDH LACTATE DEHYDROGENASE 188 U/L (84-246); URIC ACID 4.3 MG/DL (2.6-6.0)
[2021-02-18] MEDS ORDERED: FENTANYL 2MCG/ML ROPIVACAINE 0.2% IN 0.9% NACL 100ML IVBAG As Ordered ONE (15:35)
[2021-02-18] MEDS ORDERED: EPIDURAL/PCA KEYS XX PRN (15:40)
[2021-02-18] MEDS ORDERED: FENTANYL/ROPIVACAINE/NACL BAG 100 ML EPIDURAL ONE (15:45)
[2021-02-18] MEDS ORDERED: METHYLERGONOVINE MALEATE 0.2 MG TAB PO PRN (18:25)
[2021-02-18] MEDS ORDERED: RHOGAM 300 MCG (1500 IU) INJ (J2790) IM SCH (18:25)
[2021-02-18] MEDS ORDERED: DOCUSATE SODIUM 100MG CAPSULE PO PRN (18:25)
[2021-02-18] MEDS ORDERED: MEASLES,MUMPS,RUBELLA VACCINE INJ (MMR-II) (90707) SC SCH (18:25)
[2021-02-18] MEDS ORDERED: DIBUCAINE 1% OINTMENT 30GM TOP PRN (18:25)
[2021-02-18] MEDS ORDERED: IBUPROFEN 600MG TAB PO PRN (18:25)
[2021-02-18] MEDS ORDERED: ACETAMINOPHEN TAB 650MG DOSE (2X325MG) PO PRN (18:25)
--- NOTE | 2021-02-18 18:38 | HPE ---
HISTORY AND PHYSICAL DATE OF ADMISSION: 02/18/2021 HISTORY OF PRESENT ILLNESS: Qian is a 25-year-old female, 5, para 3-0-2-3, with an estimated date of confinement (EDC) of 02/23/2021, estimated gestational age (EGA) 39-4/7 weeks gestation, is being admitted for elective induction. Upon admission, no bleeding or leakage of fluid. Irregular contractions. On admission, she was examined and found to be 3 cm dilated, 70% effaced, fetus at -3 station in a vertex position. Her record was reviewed, which was essentially unremarkable. LABORATORIES: Blood type is O positive. Rubella immune. Hepatitis negative. Human immunodeficiency virus (HIV) negative. Gonorrhea and chlamydia negative. One-hour sugar testing was within normal limits. Her group B Streptococcus (GBS) screen was negative. PAST MEDICAL HISTORY: Significant for thyroid disease. PAST SURGICAL HISTORY: Bunionectomy. SOCIAL HISTORY: Denies any alcohol, drugs or cigarette smoking. REVIEW OF SYSTEMS: Unremarkable. FAMILY HISTORY: Significant for anemia and high blood pressure. PHYSICAL EXAMINATION: An obese female in no acute distress. ABDOMEN: Soft, nontender, nondistended. EXTREMITIES: No clubbing, cyanosis or edema. VAGINAL EXAM: 2-3 cm dilated, 70% effaced, -3 station on vertex position. TRACING: Reviewed. Category 1 tracing. ASSESSMENT: Intrauterine at 39-4/7 weeks gestation being admitted for an induction, group B Streptococcus (GBS) negative. PLAN: Admit to labor and delivery. Induction process discussed. Labs sent. Will proceed with Pitocin induction followed by artificial rupture of membrane. Pain management also discussed. Patient opted for epidural. We will continue to monitor. Anticipate delivery.
[2021-02-18] MEDS: IBUPROFEN 800 MG TAB PO PRN (19:53)
[2021-02-18] MEDS: ACETAMINOPHEN 500 MG TAB PO PRN (19:54)
--- NOTE | 2021-02-18 22:49 | DN ---
DELIVERY NOTE DATE OF DELIVERY: 02/18/2021 TIME OF : GENDER: Female APGARS: 9 and 9 LACERATIONS: ANESTHESIA: ESTIMATED BLOOD LOSS: 350 cc COUNTS: DESCRIPTION OF DELIVERY: Qian is a 25-year-old female, 5, para 3, 0, 2, 3, who was admitted at 39-4/7 weeks gestation. She underwent Pitocin followed by artificial rupture of membranes after epidural for pain. She then progressed to fully dilated. She delivered a live female in the left occiput anterior position over an intact perineum. Baby Apgars 9 and 9. weight 7 pounds 15 ounces. Placenta delivered spontaneously intact, three vessel cord. Estimated blood loss 350 cc. Both mother and baby in stable condition.
[2021-02-19] MEDS: ACETAMINOPHEN 500 MG TAB PO PRN (05:00)
[2021-02-19 05:51] VITALS: BP 134/85
[2021-02-19] MEDS: LEVOTHYROXINE 100MCG TABLET (0.1MG) PO SCH (06:07)
[2021-02-19] MEDS ORDERED: BOOSTRIX/ADACEL VACCINE (DIPHTH/PERTUSS/ACELL/TETANUS) 0.5ML SYR IM ONE (09:00)
[2021-02-19] MEDS ORDERED: INFLUENZA QUADRIVALENT PF VACCINE 0.5ML SYRINGE IM ONE (09:00)
[2021-02-19] MEDS: PRENATAL VITAMINS CHEWABLE TABLET PO SCH (10:13)
[2021-02-19] MEDS: IBUPROFEN 800 MG TAB PO PRN (10:14)
[2021-02-19 18:00] VITALS: BP 135/88
[2021-02-20] MEDS: ACETAMINOPHEN 500 MG TAB PO PRN (02:53)
[2021-02-20] MEDS: LEVOTHYROXINE 100MCG TABLET (0.1MG) PO SCH (05:54)
[2021-02-20 06:24] VITALS: BP 146/80
[2021-02-20] MEDS: PRENATAL VITAMINS CHEWABLE TABLET PO SCH (09:28)
[2021-02-20] MEDS: IBUPROFEN 800 MG TAB PO PRN (11:30)
== END 2021-02-20 12:00 | disposition home or self-care (01) | DRG 560 ==
LOC: M LDI 12:21 → M OBS 20:51
PROVIDERS: ADMIT Obstetrics & Gynecology; ATTEND Obstetrics & Gynecology
PROC: 10E0XZZ Delivery of Products of Conception, External Approach (ICD-10-PCS; principal; 2021-02-18)
PROC: 10907ZC Drainage of Amniotic Fluid, Therapeutic from Products of Conception, Via Natural or Artificial Opening (ICD-10-PCS; 2021-02-18)
PROC: 3E033VJ Introduction of Other Hormone into Peripheral Vein, Percutaneous Approach (ICD-10-PCS; 2021-02-18)
DX: O99.284 Endocrine, nutritional and metabolic diseases complicating childbirth (principal); E07.9 Disorder of thyroid, unspecified; Z3A.39 39 weeks gestation of pregnancy; Z37.0 Single live birth

== ENCOUNTER → 2021-04-25 | Outpatient (CLI) | payer OTHER ==
[2021-04-25 14:05] LABS: FREE T4 0.82 NG/DL (0.76-1.46); THYROID STIMULATING HORMONE 1.93 uIU/ML (0.358-3.740)
== END ==
LOC: M PLALAB 11:14
PROVIDERS: ATTEND Nurse Practitioner Family
DX: E06.3 Autoimmune thyroiditis (principal)

== ENCOUNTER → 2021-10-08 | Outpatient (REF) | payer OTHER ==
[~2021-10-08] MED LIST changes: -DOXY100C PO; +DOXY100C3 PO
[2021-10-08 19:14] LABS: HCG, SERUM QUALITATIVE NEGATIVE (NEGATIVE); HCG, SERUM QUANTITATIVE < 1.0 MIU/ML
== END ==
LOC: M LAB REF 18:04
PROVIDERS: ATTEND Physician Assistant
DX: Z32.02 Encounter for pregnancy test, result negative (principal)

== ENCOUNTER → 2022-02-05 | Outpatient (CLI) | payer OTHER ==
[~2022-02-05] MED LIST changes: -CEFD1CAP8 PO; +CEFD300C41 PO
[2022-02-05 18:06] LABS: FREE T4 0.77 NG/DL (0.76-1.46); THYROID STIMULATING HORMONE 7.43 uIU/ML (0.358-3.740)
== END ==
LOC: M PLALAB 14:01
PROVIDERS: ATTEND Nurse Practitioner Family
DX: E06.3 Autoimmune thyroiditis (principal)

== ENCOUNTER → 2022-03-12 | Outpatient (REF) | payer OTHER | LOC: M LAB REF 22:53 | PROVIDERS: ATTEND Physician Assistant | DX: R05.9 Cough, unspecified (principal) ==

== ENCOUNTER → 2022-11-13 | Outpatient (REF) | payer OTHER ==
[2022-11-13 16:39] LABS: HEMATOCRIT 39.2 % (36.0-47.0); HEMOGLOBIN 11.8 g/dl (12.0-15.5); MEAN CORPUSCULAR HEMOGLOBIN 24.3 pg (27.0-33.0); MEAN CORPUSCULAR HGB CONC 30.1 g/dl (32.0-36.5); MEAN CORPUSCULAR VOLUME 80.7 fl (80.0-96.0); PLATELET COUNT, AUTOMATED 288 10^3/uL (150-450); RED BLOOD COUNT 4.86 10^6/uL (4.00-5.40)
[2022-11-13 17:15] LABS: THYROID STIMULATING HORMONE 6.662 uIU/ML (0.55-4.78)
[2022-11-13 17:17] LABS: FERRITIN 20.6 NG/ML (7.3-270.7)
[2022-11-13 17:21] LABS: ALBUMIN 3.7 G/DL (3.2-5.2); ALKALINE PHOSPHATASE 106 U/L (46-116); ALT/SGPT 19 U/L (7.0-40); AST/SGOT 11 U/L (<34); BILIRUBIN,TOTAL 0.3 MG/DL (0.3-1.2); BLOOD UREA NITROGEN 11 MG/DL (9-23); CALCIUM LEVEL 8.9 MG/DL (8.5-10.1); CARBON DIOXIDE LEVEL 27 MMOL/L (20-31); CHLORIDE LEVEL 105 MMOL/L (98-107); CHOLESTEROL LEVEL 177 MG/DL (<200); CHOLESTEROL RISK RATIO 4.52 (<5); CREATININE FOR GFR 0.65 MG/DL (0.55-1.30); GLOMERULAR FILTRATION RATE > 60.0 (>60); GLUCOSE, FASTING 76 MG/DL (60-100); HDL CHOLESTEROL 39.1 MG/DL (>40); IRON (FE) 45 UG/DL (50-170); LDL CHOLESTEROL 107.7 MG/DL (<100); NON-HDL-C 138 MG/DL; PERCENT SATURATION 12.6 % (13.2-45.0); POTASSIUM SERUM 4.9 MMOL/L (3.5-5.1); SODIUM LEVEL 137 MMOL/L (136-145); TOTAL IRON BINDING CAPACITY 357 UG/DL (250-425); TOTAL PROTEIN 7.6 G/DL (5.7-8.2); TRIGLYCERIDES LEVEL 151 MG/DL (<150)
== END ==
LOC: M LAB REF 16:06
PROVIDERS: ATTEND Physician Assistant
DX: E78.5 Hyperlipidemia, unspecified (principal); E03.9 Hypothyroidism, unspecified; Z86.2 Personal history of diseases of the blood and blood-forming organs and certain disorders involving the immune mechanism

== ENCOUNTER → 2023-01-25 | Outpatient (CLI) | payer OTHER | LOC: M RAD 10:50 | PROVIDERS: ATTEND Physician Assistant Medical | DX: M25.552 Pain in left hip (principal); M25.562 Pain in left knee ==

== ENCOUNTER → 2023-02-15 | Outpatient (REF) | payer OTHER ==
[2023-02-15 16:48] LABS: HEMATOCRIT 37.2 % (36.0-47.0); HEMOGLOBIN 11.3 g/dl (12.0-15.5); MEAN CORPUSCULAR HEMOGLOBIN 25.1 pg (27.0-33.0); MEAN CORPUSCULAR HGB CONC 30.4 g/dl (32.0-36.5); MEAN CORPUSCULAR VOLUME 82.5 fl (80.0-96.0); PLATELET COUNT, AUTOMATED 242 10^3/uL (150-450); RED BLOOD COUNT 4.51 10^6/uL (4.00-5.40); WHITE BLOOD COUNT 6.4 10^3/uL (4.0-10.0)
[2023-02-15 16:55] LABS: FERRITIN 21.2 NG/ML (7.3-270.7)
[2023-02-15 16:56] LABS: THYROID STIMULATING HORMONE 2.92 uIU/ML (0.55-4.78)
== END ==
LOC: M LAB REF 16:16
PROVIDERS: ATTEND Physician Assistant
DX: E06.3 Autoimmune thyroiditis (principal); D50.9 Iron deficiency anemia, unspecified

== ENCOUNTER → 2023-03-16 | Outpatient (CLI) | payer OTHER | LOC: M RAD 15:17 | PROVIDERS: ATTEND Physician Assistant Medical | DX: M25.511 Pain in right shoulder (principal) ==

== ENCOUNTER → 2023-05-17 | Outpatient (CLI) | payer OTHER ==
[~2023-05-17] MED LIST changes: -GABA-283 PO; +GABA-284 PO
[2023-05-17 15:13] LABS: BASO % 0.3 % (0.0-1.0); EOS # 0.2 10^3/uL (0.0-0.5); HEMATOCRIT 35.2 % (36.0-47.0); HEMOGLOBIN 11.2 g/dl (12.0-15.5); LYMPH # 2.4 10^3/uL (1.5-5.0); MEAN CORPUSCULAR HEMOGLOBIN 25.6 pg (27.0-33.0); MEAN CORPUSCULAR HGB CONC 31.8 g/dl (32.0-36.5); MEAN CORPUSCULAR VOLUME 80.5 fl (80.0-96.0); MONO # 0.6 10^3/uL (0.0-0.8); MONO % 6.4 % (2.0-8.0); NEUTROPHILS # 5.7 10^3/uL (1.5-8.5); NEUTROPHILS % 63.6 % (36.0-66.0); PLATELET COUNT, AUTOMATED 247 10^3/uL (150-450); RED BLOOD COUNT 4.37 10^6/uL (4.00-5.40)
[2023-05-17 15:57] LABS: PERCENT SATURATION 8.3 % (13.2-45.0)
[2023-05-17 15:59] LABS: THYROID STIMULATING HORMONE 1.439 uIU/ML (0.55-4.78)
[2023-05-17 16:00] LABS: FERRITIN 29.9 NG/ML (7.3-270.7)
== END ==
LOC: M LAB 14:07
PROVIDERS: ATTEND Physician Assistant
DX: D64.9 Anemia, unspecified (principal); E06.3 Autoimmune thyroiditis

== ENCOUNTER → 2024-01-19 | Outpatient (REF) | payer OTHER ==
[~2024-01-19] MED LIST changes: +CEFD1CAP9 PO; -CEFD300C41 PO
[2024-01-19 17:40] LABS: HEMATOCRIT 37.7 % (36.0-47.0); HEMOGLOBIN 11.7 g/dl (12.0-15.5); MEAN CORPUSCULAR HEMOGLOBIN 25.7 pg (27.0-33.0); MEAN CORPUSCULAR VOLUME 82.7 fl (80.0-96.0); PLATELET COUNT, AUTOMATED 291 10^3/uL (150-450); RED BLOOD COUNT 4.56 10^6/uL (4.00-5.40); WHITE BLOOD COUNT 9.3 10^3/uL (4.0-10.0)
[2024-01-19 18:43] LABS: HIV 1&2 SCREEN NEGATIVE (NEGATIVE)
[2024-01-19 18:51] LABS: HCG, SERUM QUANTITATIVE 98897.1 MIU/ML (<4.2); HEPATITIS C VIRUS ABY INDEX < 0.02 INDEX (<0.8)
== END ==
LOC: M LAB REF 16:30
PROVIDERS: ATTEND Obstetrics & Gynecology
DX: O36.80X0 Pregnancy with inconclusive fetal viability, not applicable or unspecified (principal)

== ENCOUNTER → 2024-02-10 | Outpatient (CLI) | payer OTHER | LOC: M WHC 13:34 | PROVIDERS: ATTEND Obstetrics & Gynecology | DX: O36.80X0 Pregnancy with inconclusive fetal viability, not applicable or unspecified (principal) ==

== ENCOUNTER → 2024-03-20 | Outpatient (CLI) | payer OTHER ==
[2024-03-20 16:48] LABS: FREE T4 0.83 NG/DL (0.89-1.76); THYROID STIMULATING HORMONE 3.382 uIU/ML (0.55-4.78)
== END ==
LOC: M LAB 15:20
PROVIDERS: ATTEND Physician Assistant
DX: E06.3 Autoimmune thyroiditis (principal)

== ENCOUNTER → 2024-03-20 | Outpatient (CLI) | payer OTHER | LOC: M RAD 15:06 | PROVIDERS: ATTEND Obstetrics & Gynecology | DX: N83.291 Other ovarian cyst, right side (principal) ==

== ENCOUNTER → 2024-03-23 | Outpatient (REF) | payer OTHER ==
[2024-03-23 17:24] LABS: APPEARANCE, URINE TURBID (CLEAR); BACTERIA, URINE AUTO 2+ (NEGATIVE); BILIRUBIN, URINE AUTO NEGATIVE (NEGATIVE); BLOOD, URINE BLOOD 3+ (NEGATIVE); COLOR, URINE AMBER (YELLOW); GLUCOSE, URINE (UA) AUTO NEGATIVE (NEGATIVE); KETONE, URINE AUTO NEGATIVE (NEGATIVE); LEUKOCYTE ESTERASE, URINE AUTO 3+ (NEGATIVE); MUCUS, URINE SMALL (NEGATIVE); NITRITE, URINE AUTO NEGATIVE (NEGATIVE); PROTEIN, URINE AUTO 1+ mg/dL (NEGATIVE); RBC, URINE AUTO 25 /HPF (0-3); SPECIFIC GRAVITY URINE AUTO 1.023 (1.002-1.035); SQUAMOUS EPITHELIAL CELL UR AU 12 /HPF (0-6); UROBILINOGEN, URINE AUTO 0.2 mg/dL (0.0-2.0); WBC, URINE AUTO 46 /HPF (0-3)
== END ==
LOC: M LAB REF 16:09
PROVIDERS: ATTEND Obstetrics & Gynecology
DX: Z34.82 Encounter for supervision of other normal pregnancy, second trimester (principal)

== ENCOUNTER → 2024-04-12 | Outpatient (CLI) | payer OTHER | LOC: M RAD 09:00 | PROVIDERS: ATTEND Obstetrics & Gynecology | DX: Z34.82 Encounter for supervision of other normal pregnancy, second trimester (principal) ==

== ENCOUNTER → 2024-05-08 | Outpatient (CLI) | payer OTHER | LOC: M WHC 06:49 | PROVIDERS: ATTEND Obstetrics & Gynecology | DX: Z34.82 Encounter for supervision of other normal pregnancy, second trimester (principal) ==

== ENCOUNTER → 2024-06-09 | Outpatient (CLI) | payer OTHER ==
[~2024-06-09] MED LIST changes: +ACET325C5 PO; +FIOR1CAP PO
[2024-06-09 14:58] LABS: HEMATOCRIT 32.5 % (36.0-47.0); HEMOGLOBIN 10.4 g/dl (12.0-15.5); MEAN CORPUSCULAR HEMOGLOBIN 27.5 pg (27.0-33.0); PLATELET COUNT, AUTOMATED 192 10^3/uL (150-450); RED BLOOD COUNT 3.78 10^6/uL (4.00-5.40)
== END ==
LOC: M LAB 13:27
PROVIDERS: ATTEND Advanced Practice Midwife
DX: Z34.82 Encounter for supervision of other normal pregnancy, second trimester (principal)

== ENCOUNTER → 2024-06-16 | Outpatient (CLI) | payer OTHER | LOC: M RAD 14:18 | PROVIDERS: ATTEND Obstetrics & Gynecology | DX: O36.5930 Maternal care for other known or suspected poor fetal growth, third trimester, not applicable or unspecified (principal); Z3A.30 30 weeks gestation of pregnancy ==

== ENCOUNTER 2024-06-17 22:14 | Outpatient (CLI) | payer OTHER ==
[2024-06-17] VITALS (7 sets, daily range): BP systolic 119–144; BP diastolic 71–91; O2SAT 97
[~2024-06-17] VITALS: Ht 160 cm; Wt 105.0 kg
[~2024-06-17 22:14] MED LIST changes: -ACET325C5 PO; -FIOR1CAP PO
[2024-06-17] MEDS ORDERED: ACET325C5 PO (22:34)
[2024-06-17] MEDS ORDERED: HOME MED LIST COMPLETE! XX SCH (22:35)
[2024-06-17] MEDS: PERCOCET 5MG/325MG TAB PO ONE (23:05)
[2024-06-17 23:19] LABS: HEMATOCRIT 33.2 % (36.0-47.0); HEMOGLOBIN 10.9 g/dl (12.0-15.5); MEAN CORPUSCULAR HEMOGLOBIN 27.5 pg (27.0-33.0); MEAN CORPUSCULAR HGB CONC 32.8 g/dl (32.0-36.5); MEAN CORPUSCULAR VOLUME 83.6 fl (80.0-96.0); PLATELET COUNT, AUTOMATED 240 10^3/uL (150-450); RED BLOOD COUNT 3.97 10^6/uL (4.00-5.40); WHITE BLOOD COUNT 10.7 10^3/uL (4.0-10.0)
[2024-06-17 23:33] LABS: TOTAL PROTEIN,RANDOM URINE 43.1 MG/DL (0.0-14.0)
[2024-06-17 23:36] LABS: URIC ACID 5.1 MG/DL (3.1-7.8)
[2024-06-17 23:38] LABS: CREATININE,RANDOM URINE 244.1 MG/DL; LDH LACTATE DEHYDROGENASE 168 U/L (120-246)
[2024-06-17 23:39] LABS: ALT/SGPT < 9 U/L (7.0-40); AST/SGOT 11 U/L (<34); BILIRUBIN,TOTAL 0.2 MG/DL (0.3-1.2); CREATININE FOR GFR 0.62 MG/DL (0.55-1.30); GLOMERULAR FILTRATION RATE > 60.0 (>60)
[2024-06-17] MEDS ORDERED: FIOR1CAP PO (23:46)
== END 2024-06-17 23:50 | disposition home or self-care (01) ==
LOC: M LDO 22:14
PROVIDERS: ATTEND Specialist
DX: O26.893 Other specified pregnancy related conditions, third trimester (principal); O26.853 Spotting complicating pregnancy, third trimester; R51.9 Headache, unspecified; Z3A.30 30 weeks gestation of pregnancy
CPT/HCPCS: 59025; 82247; 82570; 83615; 84156; 84450; 84460; 84550; 85027; G0463

== ENCOUNTER → 2024-06-27 | Outpatient (REF) | payer OTHER ==
[~2024-06-27] MED LIST changes: +ACET325C5 PO; +FIOR1CAP PO
[2024-06-28 13:27] LABS: BACTERIA, URINE AUTO 1+ (NEGATIVE); BILIRUBIN, URINE AUTO NEGATIVE (NEGATIVE); BLOOD, URINE BLOOD 2+ (NEGATIVE); CALCIUM OXALATE CRYSTALS SMALL; COLOR, URINE AMBER (YELLOW); GLUCOSE, URINE (UA) AUTO NEGATIVE (NEGATIVE); KETONE, URINE AUTO NEGATIVE (NEGATIVE); LEUKOCYTE ESTERASE, URINE AUTO 3+ (NEGATIVE); MUCUS, URINE SMALL (NEGATIVE); NITRITE, URINE AUTO NEGATIVE (NEGATIVE); PROTEIN, URINE AUTO 1+ mg/dL (NEGATIVE); RBC, URINE AUTO 19 /HPF (0-3); SPECIFIC GRAVITY URINE AUTO 1.024 (1.002-1.035); SQUAMOUS EPITHELIAL CELL UR AU 7 /HPF (0-6); UROBILINOGEN, URINE AUTO 0.2 mg/dL (0.0-2.0); WBC, URINE AUTO 39 /HPF (0-3)
[2024-06-29 06:47] LABS: APPEARANCE, URINE CLOUDY (CLEAR)
== END ==
LOC: M LAB REF 12:47
PROVIDERS: ATTEND Obstetrics & Gynecology
DX: Z34.82 Encounter for supervision of other normal pregnancy, second trimester (principal)

== ENCOUNTER 2024-07-02 16:11 | Outpatient (CLI) | payer OTHER ==
[~2024-07-02] VITALS: Ht 160 cm; Wt 105.2 kg
[2024-07-02 16:29] VITALS: BP 134/78
[2024-07-02] MEDS ORDERED: PREN1CHW PO (16:36)
[2024-07-02] MEDS ORDERED: HOME MED LIST COMPLETE! XX SCH (16:40)
== END 2024-07-02 18:17 | disposition home or self-care (01) ==
LOC: M LDO 16:11
PROVIDERS: ATTEND Obstetrics & Gynecology
DX: O36.8130 Decreased fetal movements, third trimester, not applicable or unspecified (principal); O32.1XX9 Maternal care for breech presentation, other fetus; O36.5930 Maternal care for other known or suspected poor fetal growth, third trimester, not applicable or unspecified; Z3A.31 31 weeks gestation of pregnancy
CPT/HCPCS: 59025; G0463

== ENCOUNTER → 2024-07-17 | Outpatient (CLI) | payer OTHER ==
[~2024-07-17] MED LIST changes: +PREN1CHW PO
== END ==
LOC: M RAD 16:11
PROVIDERS: ATTEND Obstetrics & Gynecology
DX: O36.5990 Maternal care for other known or suspected poor fetal growth, unspecified trimester, not applicable or unspecified (principal)

== ENCOUNTER 2024-07-23 15:09 | Outpatient (CLI) | payer OTHER ==
[~2024-07-23] VITALS: Ht 160 cm; Wt 107.3 kg
[2024-07-23 15:27] VITALS: BP 138/96
[2024-07-23] MEDS ORDERED: HOME MED LIST COMPLETE! XX SCH (17:05)
[2024-07-23] MEDS: CYCLOBENZAPRINE 10MG TABLET PO ONE (17:17)
[2024-07-23] MEDS ORDERED: CYCL-707 PO (19:54)
[2024-07-23] MEDS ORDERED: MACR100C43 PO (20:00)
== END 2024-07-23 19:50 | disposition home or self-care (01) ==
LOC: M LDO 15:09
PROVIDERS: ATTEND Obstetrics & Gynecology
DX: O26.893 Other specified pregnancy related conditions, third trimester (principal); M54.50 Low back pain, unspecified; Z3A.34 34 weeks gestation of pregnancy
CPT/HCPCS: 59025; 81001; 87086; G0463

== ENCOUNTER → 2024-08-08 | Outpatient (REF) | payer OTHER ==
[~2024-08-08] MED LIST changes: +CYCL-707 PO; +MACR100C43 PO
[2024-08-09 13:11] LABS: FREE T4 0.93 NG/DL (0.89-1.76)
[2024-08-09 13:51] LABS: FREE T3 2.9 PG/ML (2.3-4.2)
[2024-08-10 06:54] LABS: THYROID STIMULATING HORMONE 3.334 uIU/ML (0.55-4.78)
== END ==
LOC: M LAB REF 12:11
PROVIDERS: ATTEND Obstetrics & Gynecology
DX: Z34.83 Encounter for supervision of other normal pregnancy, third trimester (principal)

== ENCOUNTER 2024-08-16 12:14 | Inpatient (IN) | payer OTHER ==
[2024-08-16] VITALS (52 sets, daily range): BP systolic 124–189; BP diastolic 60–103
[~2024-08-16] VITALS: Ht 160 cm; Wt 111.0 kg
[2024-08-16] MEDS ORDERED: OXYTOCIN DRIP 30 UNITS in IV 1 EA IV PRN (13:15)
[2024-08-16] MEDS ORDERED: TRANEXAMIC ACID INJection 1,000 MG in NS 100 ML IV PRN (13:15)
[2024-08-16] MEDS ORDERED: OXYTOCIN INJ 10UNITS/ML 1ML VIAL IM PRN (13:15)
[2024-08-16] MEDS ORDERED: CARBOPROST TROMETHAMINE 250 MCG/ML AMP IM PRN (13:15)
[2024-08-16] MEDS ORDERED: LIDOCAINE 1% MDV 20ML VIAL INFIL PRN (13:15)
[2024-08-16 13:20] LABS: TOTAL PROTEIN,RANDOM URINE 51.3 MG/DL (0.0-14.0)
[2024-08-16 13:21] LABS: HEMATOCRIT 33.8 % (36.0-47.0); HEMOGLOBIN 10.6 g/dl (12.0-15.5); MEAN CORPUSCULAR HEMOGLOBIN 26.5 pg (27.0-33.0); MEAN CORPUSCULAR HGB CONC 31.4 g/dl (32.0-36.5); MEAN CORPUSCULAR VOLUME 84.5 fl (80.0-96.0); PLATELET COUNT, AUTOMATED 214 10^3/uL (150-450); WHITE BLOOD COUNT 8.5 10^3/uL (4.0-10.0)
[2024-08-16 13:25] LABS: CREATININE,RANDOM URINE 107.6 MG/DL
[2024-08-16] MEDS: NIFEdipine 10 MG CAP PO ONE ×2 (13:25→17:22)
[2024-08-16] MEDS: hydrALAZINE 20MG/ML 1ML VIAL IV ONE ×2 (13:31→14:00)
[2024-08-16] MEDS: miSOPROStol 50MCG 1/2 TABLET PO ONE (13:33)
[2024-08-16 13:34] LABS: URIC ACID 5.1 MG/DL (3.1-7.8)
[2024-08-16 13:36] LABS: LDH LACTATE DEHYDROGENASE 201 U/L (120-246)
[2024-08-16 13:37] LABS: ALT/SGPT 12 U/L (7.0-40); AST/SGOT 19 U/L (<34); BILIRUBIN,TOTAL 0.2 MG/DL (0.3-1.2); CREATININE FOR GFR 0.66 MG/DL (0.55-1.30); GLOMERULAR FILTRATION RATE > 60.0 (>60)
[2024-08-16 14:25] LABS: HEPATITIS C VIRUS ABY INDEX < 0.02 INDEX (<0.8)
[2024-08-16] MEDS: FIORICET TAB PO PRN (18:32)
[2024-08-16] MEDS: LR 1,000 ML IV SCH (18:36)
[2024-08-16] MEDS: MAG Sulf (L&D) 4 GM/100 ML 4 GM in IV 1 EA IV ONE (18:37)
[2024-08-16] MEDS: OXYTOCIN DRIP 30 UNITS in IV 1 EA IV SCH (18:38)
[2024-08-16] MEDS: LACTATED RINGER'S 1000 ML IV ONE (19:00)
[2024-08-16] MEDS: MAG Sulf (OBGYN) 20GM/500ML 20,000 MG in IV 1 EA IV SCH (19:00)
[2024-08-16] MEDS ORDERED: ONDANSETRON 4MG 2ML VIAL IV PRN (19:45)
[2024-08-16] MEDS ORDERED: NALOXONE INJ 0.4MG/1ML VIAL IV PRN (19:45)
[2024-08-16] MEDS ORDERED: EPIDURAL/PCA KEYS XX PRN (19:45)
[2024-08-16] MEDS ORDERED: ePHEDrine SULFATE 25 MG/5 ML(5MG/ML) SYRINGE IVP PRN (19:45)
[2024-08-16] MEDS ORDERED: LR 500 ML IV PRN (19:45)
[2024-08-16] MEDS ORDERED: diphenhydrAMINE 50MG/ML VIAL IV PRN (19:45)
[2024-08-16] MEDS: FENTANYL/ROPIVACAINE/NACL BAG 100 ML EPIDURAL SCH (20:21)
[2024-08-16] MEDS: LABETALOL 200 MG TAB PO SCH (23:48)
[2024-08-17] VITALS (31 sets, daily range): BP systolic 109–159; BP diastolic 63–101; O2SAT 97–98
[2024-08-17] MEDS: OXYTOCIN DRIP 30 UNITS in IV 1 EA IV PRN (01:02)
[2024-08-17] MEDS: ACETAMINOPHEN 500 MG TAB PO PRN (02:18)
[2024-08-18 02:00] VITALS: BP 125/73; O2SAT 98
[2024-08-18 05:50] VITALS: BP 136/83; O2SAT 96
[2024-08-18 08:13] VITALS: BP 136/83
[2024-08-18 10:00] VITALS: BP 142/84; O2SAT 96
[2024-08-18] MEDS ORDERED: LABE20TAB PO (13:45)
[2024-08-18] MEDS: FLUZONE VACCINE TRIVALENT PF(2024-25) 0.5ML SYRINGE IM.IMMUN ONE (13:56)
== END 2024-08-18 15:32 | disposition home or self-care (01) | DRG 560 ==
LOC: M LDO 12:14 → M LDI 13:06 → M OBS 08-17 17:47
PROVIDERS: ADMIT Advanced Practice Midwife; ATTEND Advanced Practice Midwife
PROC: 3E033VJ Introduction of Other Hormone into Peripheral Vein, Percutaneous Approach (ICD-10-PCS; 2024-08-16)
PROC: 10E0XZZ Delivery of Products of Conception, External Approach (ICD-10-PCS; principal; 2024-08-17)
DX: O14.14 Severe pre-eclampsia complicating childbirth (principal); Z37.0 Single live birth; Z3A.37 37 weeks gestation of pregnancy

== ENCOUNTER → 2024-10-19 | Outpatient (REF) | payer OTHER ==
[~2024-10-19] MED LIST changes: +LABE20TAB PO
[2024-10-19 18:00] LABS: FREE T4 0.92 NG/DL (0.89-1.76); THYROID STIMULATING HORMONE 3.491 uIU/ML (0.55-4.78)
== END ==
LOC: M LAB REF 16:17
PROVIDERS: ATTEND Physician Assistant
DX: E06.3 Autoimmune thyroiditis (principal)

== ENCOUNTER 2024-11-01 15:08 | Emergency (ER) | payer OTHER ==
[~2024-11-01 15:08] MED LIST changes: +LABE300T28 PO; +VENTAER INH
[2024-11-01 18:10] VITALS: BP 147/70; TEMP 99.2; O2SAT 97
== END 2024-11-01 18:32 | disposition home or self-care (01) ==
LOC: EDBD 15:08 → M ED 15:08
DX: S20.211A Contusion of right front wall of thorax, initial encounter (principal); S80.11XA Contusion of right lower leg, initial encounter; Y92.410 Unspecified street and highway as the place of occurrence of the external cause; Y93.9 Activity, unspecified; Y99.9 Unspecified external cause status; V49.50XA Passenger injured in collision with unspecified motor vehicles in traffic accident, initial encounter; I10 Essential (primary) hypertension; J45.909 Unspecified asthma, uncomplicated; K21.9 Gastro-esophageal reflux disease without esophagitis; Z79.51 Long term (current) use of inhaled steroids; Z79.899 Other long term (current) drug therapy

== ENCOUNTER 2025-06-26 08:54 | Emergency (ER) | payer OTHER ==
[~2025-06-26] VITALS: Ht 160 cm; Wt 102.5 kg
[2025-06-26 08:55] VITALS: TEMP 98.8
[2025-06-26] MEDS ORDERED: ACET-1593 PO (09:07)
[2025-06-26] MEDS ORDERED: ISOVUE-370 76% 100 ML VIAL As Ordered ONE (09:42)
[2025-06-26 09:46] LABS: BASO # 0.0 10^3/uL (0.0-0.2); BASO % 0.7 % (0.0-1.0); EOS # 0.1 10^3/uL (0.0-0.5); EOS % 2.0 % (0.0-3.0); LYMPH # 2.0 10^3/uL (1.5-5.0); LYMPH % 37.2 % (24.0-44.0); MONO # 0.3 10^3/uL (0.0-0.8); MONO % 5.5 % (2.0-8.0); NEUTROPHILS # 3.0 10^3/uL (1.5-8.5); NEUTROPHILS % 54.2 % (36.0-66.0); PLATELET COUNT, AUTOMATED 255 10^3/uL (150-450)
[2025-06-26 10:18] LABS: HCG, SERUM QUALITATIVE NEGATIVE (NEGATIVE)
[2025-06-26 10:19] LABS: CALCIUM LEVEL 9.1 MG/DL (8.5-10.1); CARBON DIOXIDE LEVEL 26 MMOL/L (20-31); CHLORIDE LEVEL 105 MMOL/L (98-107); CREATININE FOR GFR 0.74 MG/DL (0.55-1.30); GLOMERULAR FILTRATION RATE > 90.0 (>60); POTASSIUM SERUM 3.7 MMOL/L (3.5-5.1); SODIUM LEVEL 141 MMOL/L (136-145)
[2025-06-26 10:52] LABS: INR 1.16
[2025-06-26] MEDS: diphenhydrAMINE 50 MG/ML VIAL IV STA (10:58)
[2025-06-26] MEDS: NS (Normal Saline) 0.9% 1,000 ML IV ONE (10:58)
[2025-06-26] MEDS: KETOROLAC 30 MG/ML 1 ML VIAL IV ONE (10:59)
[2025-06-26 14:45] VITALS: BP 127/77; O2SAT 100
== END 2025-06-26 14:52 | disposition home or self-care (01) ==
LOC: M ED 08:54
DX: G43.909 Migraine, unspecified, not intractable, without status migrainosus (principal); R59.0 Localized enlarged lymph nodes; I10 Essential (primary) hypertension; E04.1 Nontoxic single thyroid nodule; J34.2 Deviated nasal septum; Z79.1 Long term (current) use of non-steroidal anti-inflammatories (NSAID); Z79.51 Long term (current) use of inhaled steroids; Z79.899 Other long term (current) drug therapy
CPT/HCPCS: 70450; 70496; 70498; 70551; 71045; 80047; 80048; 84703; 85025; 85610; 85730; 93041; 94760; 96374; 96375; 99285; J1200; J1885; J2765; Q9967

== ENCOUNTER → 2025-09-03 | Outpatient (CLI) | payer OTHER ==
[~2025-09-03] MED LIST changes: +ACET-1387 PO
[2025-09-03 13:52] LABS: BASO # 0.0 10^3/uL (0.0-0.2); BASO % 0.4 % (0.0-1.0); EOS # 0.2 10^3/uL (0.0-0.5); EOS % 2.5 % (0.0-3.0); LYMPH # 2.4 10^3/uL (1.5-5.0); LYMPH % 30.1 % (24.0-44.0); MONO # 0.4 10^3/uL (0.0-0.8); MONO % 4.4 % (2.0-8.0); NEUTROPHILS # 5.0 10^3/uL (1.5-8.5); NEUTROPHILS % 62.3 % (36.0-66.0); PLATELET COUNT, AUTOMATED 267 10^3/uL (150-450)
[2025-09-03 13:59] LABS: ALT/SGPT 13 U/L (7.0-40); AST/SGOT 17 U/L (<34); CALCIUM LEVEL 8.6 MG/DL (8.5-10.1); CARBON DIOXIDE LEVEL 26 MMOL/L (20-31); CHLORIDE LEVEL 103 MMOL/L (98-107); CHOLESTEROL LEVEL 175 MG/DL (<200); CHOLESTEROL RISK RATIO 4.71 (<5); CREATININE FOR GFR 0.63 MG/DL (0.55-1.30); GLOMERULAR FILTRATION RATE > 90.0 (>60); LDL CHOLESTEROL 106.1 MG/DL (<100); NON-HDL-C 137.9 MG/DL; POTASSIUM SERUM 3.6 MMOL/L (3.5-5.1); SODIUM LEVEL 141 MMOL/L (136-145); TRIGLYCERIDES LEVEL 159 MG/DL (<150)
[2025-09-03 14:00] LABS: ESTIMATED AVERAGE GLUCOSE 108.0 MG/DL (60-110); TOTAL 25(OH) VITAMIN D 21.6 NG/ML (20.0-100.0)
[2025-09-03 14:12] LABS: HCG, SERUM QUANTITATIVE 7970.2 MIU/ML (<4.2)
== END ==
LOC: M PLALAB 10:50
PROVIDERS: ATTEND Nurse Practitioner Family
DX: Z34.90 Encounter for supervision of normal pregnancy, unspecified, unspecified trimester (principal)

== ENCOUNTER → 2025-10-03 | Outpatient (CLI) | payer OTHER ==
[2025-10-03 16:37] LABS: PLATELET COUNT, AUTOMATED 240 10^3/uL (150-450)
[2025-10-03 17:04] LABS: LDH LACTATE DEHYDROGENASE 155 U/L (120-246)
[2025-10-03 17:06] LABS: ALT/SGPT 13 U/L (7.0-40); AST/SGOT 15 U/L (<34); CREATININE FOR GFR 0.70 MG/DL (0.55-1.30); GLOMERULAR FILTRATION RATE > 90.0 (>60)
[2025-10-03 17:07] LABS: FREE T4 0.83 NG/DL (0.89-1.76)
[2025-10-03 17:38] LABS: HIV 1&2 SCREEN NEGATIVE (NEGATIVE)
[2025-10-03 17:46] LABS: HEPATITIS C VIRUS ABY INDEX 0.06 INDEX (<0.8)
== END ==
LOC: M PLARAD 14:59
PROVIDERS: ATTEND Advanced Practice Midwife
DX: Z34.81 Encounter for supervision of other normal pregnancy, first trimester (principal)